=== PATIENT | male | born 1950 | race Caucasian/White ===

== ENCOUNTER 2024-08-05 12:42 | Inpatient (IN) | payer MEDICARE ==
--- NOTE | 2024-08-05 13:06 | ED ---
Male Urogenital HPI - General Chief complaint: Urogenital Stated complaint: Urogenital Time Seen by Provider: 08/05/24 12:53 Source: patient, RN notes reviewed, old records reviewed Mode of arrival: ambulatory Limitations: no limitations - History of Present Illness Initial comments: This is a 74-year-old male to the ER for evaluation of severe penile pain. Patient states he has type penis glans pain at his tip of his urethra, patient had a Garcia catheter indwelling placed for urinary retention which he switched requested switched to a suprapubic catheter because he could not deal with the pain and they thought it would alleviate his pain in his penis but his pain in his penis is significantly progressing if not worse. MD Complaint: testicle pain, penile discharge, dysuria -: month(s) Location: penis Severity scale (1-10): 10 Quality: sharp Consistency: constant Improves with: none Worsens with: none recent surgery Reports: denies other symptoms - Related Data Home Medications Medication Instructions Recorded Confirmed Acetaminophen-Codeine 300-30mg 1 tab PO Q4H PRN 08/05/24 08/05/24 [Tylenol w/codeine #3] FLUoxetine HCL [PROzac] 20 mg PO DAILY 08/05/24 08/05/24 FLUoxetine HCL [Prozac] 40 mg PO HS 08/05/24 08/05/24 L.acidoph,Paracasei, B.lactis 1 cap PO DAILY 08/05/24 08/05/24 [Probiotic] Levofloxacin [Levaquin] 750 mg PO DAILY 08/05/24 08/05/24 Lovastatin [Mevacor] 40 mg PO HS 08/05/24 08/05/24 Meloxicam [Mobic] 7.5 mg PO DAILY 08/05/24 08/05/24 Tamsulosin [Flomax] 0.4 mg PO BID 08/05/24 08/05/24 buPROPion [Wellbutrin] 75 mg PO BID 08/05/24 08/05/24 traZODone HCL [Desyrel] 100 mg PO HS 08/05/24 08/05/24 Allergies Allergy/AdvReac Type Severity Reaction Status Date / Time No Known Allergies Allergy Verified 08/05/24 14:34 Review of Systems ROS Statement: Those systems with pertinent positive or pertinent negative responses have been documented in the HPI. ROS Other: All systems not noted in ROS Statement are negative. Past Medical History Past Medical History: Prostate Disorder Additional Past Medical History / Comment(s): superpubic catheter History of Any Multi-Drug Resistant Organisms: None Reported Past Surgical History: Prostate Surgery Past Psychological History: Bipolar, Depression Smoking Status: Current every day smoker Past Alcohol Use History: Rare Past Drug Use History: None Reported General Exam Limitations: no limitations General appearance: alert, in no apparent distress Head exam: Present: atraumatic, normocephalic, normal inspection Eye exam: Present: normal appearance, PERRL, EOMI. Absent: scleral icterus, conjunctival injection, periorbital swelling ENT exam: Present: normal exam, mucous membranes moist Neck exam: Present: normal inspection. Absent: tenderness, meningismus, lymphadenopathy Respiratory exam: Present: normal lung sounds bilaterally. Absent: respiratory distress, wheezes, rales, rhonchi, stridor Cardiovascular Exam: Present: regular rate, normal rhythm, normal heart sounds. Absent: systolic murmur, diastolic murmur, rubs, gallop, clicks GI/Abdominal exam: Present: soft, normal bowel sounds. Absent: distended, tenderness, guarding, rebound, rigid Extremities exam: Present: normal inspection, full ROM, normal capillary refill. Absent: tenderness, pedal edema, joint swelling, calf tenderness Back exam: Present: normal inspection Neurological exam: Present: alert, oriented X3, CN II-XII intact Psychiatric exam: Present: normal affect, normal mood Skin exam: Present: warm, dry, intact, normal color. Absent: rash Course Vital Signs 08/05/24 08/05/24 12:46 13:43 Temperature 98.7 F Pulse Rate 77 67 Respiratory 16 18 Rate Blood Pressure 110/76 120/77 O2 Sat by Pulse 96 97 Oximetry - Reevaluation(s) Reevaluation #1: 08/05/24 13:26 Medical records reviewed Reevaluation #2: 08/05/24 13:26 Patient's pain is improved Reevaluation #3: 08/05/24 13:26 Patient informed of results questions answered Reevaluation #4: Was pt. sent in by a medical professional or institution (, PA, REMOVABLE PROSTHODONTIST, urgent care, hospital, or skilled nursing...) When possible be specific @ -no Did you speak to anyone other than the patient for history (EMS, parent, family, police, friend...)? What history was obtained from this source @ -no Did you review nursing and triage notes (agree or disagree)? Why? @ -agree Are old charts reviewed (outside hosp., previous admission, EMS record, old EKG, old radiological studies, urgent care reports/EKG's, skilled nursing records)? Report findings @ -yes Differential Diagnosis (chest pain, altered mental status, abdominal pain women, abdominal pain men, vaginal bleeding, weakness, fever, dyspnea, syncope, headache, dizziness, GI bleed, back pain, seizure, CVA, palpatations, mental health, musculoskeletal)? @ -prior EKG interpreted by me (3pts min.). @ -yes X-rays interpreted by me (1pt min.). @ -yes negative for acute disease CT interpreted by me (1pt min.). @ -no U/S interpreted by me (1pt. min.). @ -no What testing was considered but not performed or refused? (CT, X-rays, U/S, labs)? Why? @ -none What meds were considered but not given or refused? Why? @ -none Did you discuss the management of the patient with other professionals (professionals i.e. , PA, REMOVABLE PROSTHODONTIST, lab, RT, psych nurse, geriatric social worker, guest relations associate, teacher, chief green officer, supportive employment case manager)? Give summary @ -no Was smoking cessation discussed for >3mins.? @ -no Was critical care preformed (if so, how long)? @ -no Were there social determinants of health that impacted care today? How? (Homelessness, low income, unemployed, alcoholism, drug addiction, transportation, low edu. Level, literacy, decrease access to med. care, mcc, rehab)? @ -none Was there de-escalation of care discussed even if they declined (Discuss DNR or withdrawal of care, Hospice)? DNR status @ -no What co-morbidities impacted this encounter? (DM, HTN, Smoking, COPD, CAD, Cancer, CVA, ARF, Chemo, Hep., AIDS, mental health diagnosis, sleep apnea, morbid obesity)? @ -none Was patient admitted / discharged? Hospital course, mention meds given and route, prescriptions, significant lab abnormalities, going to OR and other pertinent info. @ - Undiagnosed new problem with uncertain prognosis? @ -no Drug Therapy requiring intensive monitoring for toxicity (Heparin, Nitro, Insulin, Cardizem)? @ -no Were any procedures done? @ -no Diagnosis/symptom? @ - Acute, or Chronic, or Acute on Chronic? @ -Acute Uncomplicated (without systemic symptoms) or Complicated (systemic symptoms)? @ -Complicated Side effects of treatment? @ -no Exacerbation, Progression, or Severe Exacerbation? @ -exacerbation Poses a threat to life or bodily function? How? (Chest pain, [place], [place], pneumonia, PE, COPD, DKA, ARF, appy, cholecystitis, CVA, Diverticulitis, Homicidal, Suicidal, threat to staff... and all critical care pts) @ -yes - Consultations Consultation #1: Spoke with [facility] who agrees to admit this patient Medical Decision Making - Medical Decision Making 74 male at this time will be admitted for urology evaluation and treatment in regards to need for catheter, suprapubic catheter and severe penis pain - Lab Data Result diagrams: 08/05/24 13:21 08/05/24 13:21 Lab Results 08/05/24 08/05/24 08/05/24 Range/Units 13:21 13:21 13:21 WBC 6.3 (3.8-10.6) k/uL RBC 5.11 (4.30-5.90) m/uL Hgb 15.6 (13.0-17.5) gm/dL Hct 48.3 (39.0-53.0) % MCV 94.4 (80.0-100.0) fL MCH 30.5 (25.0-35.0) pg MCHC 32.4 (31.0-37.0) g/dL RDW 13.6 (11.5-15.5) % Plt Count 294 (150-450) k/uL MPV 6.7 Neutrophils % 64 % Lymphocytes % 20 % Monocytes % 6 % Eosinophils % 7 % Basophils % 1 % Neutrophils # 4.1 (1.3-7.7) k/uL Lymphocytes # 1.3 (1.0-4.8) k/uL Monocytes # 0.4 (0-1.0) k/uL Eosinophils # 0.4 (0-0.7) k/uL Basophils # 0.1 (0-0.2) k/uL Sodium 136 L (137-145) mmol/L Potassium 4.5 (3.5-5.1) mmol/L Chloride 108 H (98-107) mmol/L Carbon Dioxide 24 (22-30) mmol/L Anion Gap 4 mmol/L BUN 30 H (9-20) mg/dL Creatinine 1.61 H (0.66-1.25) mg/dL Est GFR (CKD-EPI)AfAm 49 (>60 ml/min/1.73 sqM) Est GFR (CKD-EPI)NonAf 42 (>60 ml/min/1.73 sqM) Glucose 99 (74-99) mg/dL Calcium 9.3 (8.4-10.2) mg/dL Total Bilirubin 0.6 (0.2-1.3) mg/dL AST 21 (17-59) U/L ALT 21 (4-49) U/L Alkaline Phosphatase 86 (38-126) U/L Total Protein 6.7 (6.3-8.2) g/dL Albumin 4.2 (3.5-5.0) g/dL Amylase 48 (30-110) U/L Lipase 52 (23-300) U/L Urine Color Yellow Urine Appearance Cloudy (Clear) Urine pH 5.5 (5.0-8.0) Ur Specific [place] 1.026 (1.001-1.035) Urine Protein 1+ H (Negative) Urine Glucose (UA) Negative (Negative) Urine Ketones Negative (Negative) Urine Blood Large H (Negative) Urine Nitrite Negative (Negative) Urine Bilirubin Negative (Negative) Urine Urobilinogen <2.0 (<2.0) mg/dL Ur Leukocyte Esterase Moderate H (Negative) Urine RBC 149 H (0-5) /hpf Urine WBC 36 H (0-5) /hpf Ur Squamous Epith Cells <1 (0-4) /hpf Hyaline Casts 1 (0-2) /lpf Urine Mucus Rare H (None) /hpf Urine Yeast (Budding) Occasional H (None) /hpf - Radiology Data Radiology results: report reviewed (CT abdomen pelvis negative for acute disease), image reviewed Disposition Clinical Impression: Painful penis, Suprapubic catheter Disposition: ADMITTED IP TO THIS [facility] Condition: Good Is patient prescribed a controlled substance at d/c from ED?: No Time of Disposition: 13:30
[2024-08-05] MEDS ORDERED: NALOXONE 0.4 MG/ML 1 ML VIAL IV PRN (13:27)
[2024-08-05] MEDS: SODIUM CHLORIDE 0.9% 1,000 ML IV STA (13:30)
[2024-08-05 13:32] LABS: Basophils # (A) 0.1 k/uL (0-0.2); Basophils % (A) 1 %; Eosinophils # (A) 0.4 k/uL (0-0.7); Eosinophils % (A) 7 %; HCT 48.3 % (39.0-53.0); HGB 15.6 gm/dL (13.0-17.5); Lymphocytes # (A) 1.3 k/uL (1.0-4.8); Lymphocytes % (A) 20 %; MCH 30.5 pg (25.0-35.0); MCHC 32.4 g/dL (31.0-37.0); MCV 94.4 fL (80.0-100.0); Mean Platelet Volume 6.7; Monocytes # (A) 0.4 k/uL (0-1.0); Monocytes % (A) 6 %; Neutrophils # (A) 4.1 k/uL (1.3-7.7); Neutrophils % (A) 64 %; Platelet Count 294 k/uL (150-450); RBC 5.11 m/uL (4.30-5.90); RDW 13.6 % (11.5-15.5); WBC 6.3 k/uL (3.8-10.6)
[2024-08-05] MEDS: ACETAMINOPHEN TAB 500 MG TAB PO STA (13:32)
[2024-08-05] MEDS: KETOROLAC 15 MG/ML 1 ML VIAL IVP STA (13:42)
[2024-08-05] MEDS: HYDROmorphone 1 MG/ML 1 ML SYRINGE IVP STA (13:42)
[2024-08-05] MEDS: PHENAZOPYRIDINE 200 MG TAB PO STA (13:45)
[2024-08-05 13:50] LABS: ALT 21 U/L (4-49); AST 21 U/L (17-59); African American GFR (CKD) 49 (>60 ml/min/1.73 sqM); Albumin 4.2 g/dL (3.5-5.0); Alkaline Phosphatase 86 U/L (38-126); Amylase 48 U/L (30-110); Anion Gap 4 mmol/L; Blood Urea Nitrogen 30 mg/dL (9-20); Calcium 9.3 mg/dL (8.4-10.2); Carbon Dioxide 24 mmol/L (22-30); Chloride 108 mmol/L (98-107); Glucose 99 mg/dL (74-99); Lipase 52 U/L (23-300); Non-African American GFR(CKD) 42 (>60 ml/min/1.73 sqM); Potassium 4.5 mmol/L (3.5-5.1); Sodium 136 mmol/L (137-145); Total Bilirubin 0.6 mg/dL (0.2-1.3); Total Protein 6.7 g/dL (6.3-8.2)
[2024-08-05] MEDS: SODIUM CHLORIDE 0.9% 1,000 ML IV SCH (13:56)
[2024-08-05 14:00] LABS: Appearance,Urine Cloudy (Clear); Bilirubin,Urine Negative (Negative); Blood,Urine Large (Negative); Budding Yeast,Urine Occasional /hpf; Color,Urine Yellow; Glucose,Urine (UA) Negative (Negative); Hyaline Casts,Urine 1 /lpf (0-2); Ketones,Urine Negative (Negative); Leukocyte Esterase,Urine Moderate (Negative); Mucus,Urine Rare /hpf; Nitrite,Urine Negative (Negative); PH, Urine 5.5 (5.0-8.0); Protein,Urine 1+ (Negative); RBC,Urine 149 /hpf (0-5); Specific Gravity,Urine 1.026 (1.001-1.035); Squamous Epithelial Cell,Urine <1 /hpf (0-4); Urobilinogen,Urine <2.0 mg/dL (<2.0); WBC,Urine 36 /hpf (0-5)
--- NOTE | 2024-08-05 14:50 | CT ---
EXAMINATION TYPE: CT abdomen pelvis w con CT DLP: 1185.5 mGycm, Automated exposure control for dose reduction was used. DATE OF EXAM: 08/05/2024 2:34 PM COMPARISON: None CLINICAL INDICATION:Male, 74 years old with history of abdominal pain; penis pain TECHNIQUE: Standard CT of the abdomen and pelvis following the administration of 100 cc of Isovue 3 00 IV contrast material. Coronal and sagittal reformats were performed. FINDINGS: LOWER CHEST: Unremarkable ABDOMEN LIVER: Few scattered cysts measuring up to 2.5 cm. GALLBLADDER AND BILE DUCTS: Unremarkable. PANCREAS: Unremarkable. SPLEEN: Unremarkable. ADRENAL GLANDS: Unremarkable. KIDNEYS AND URETERS: No evidence of hydronephrosis or renal calculus. The kidneys enhance symmetrical ly. Left renal 1.5 cm cyst with additional carpal subcentimeter cysts. PELVIS BLADDER: Decompressed with suprapubic catheter in place. Heterogenous appearance of the urinary bladd er with wall thickening. REPRODUCTIVE: Prostate gland appears small in size. Unremarkable CT appearance of the visualized peni s. ABDOMEN & PELVIS STOMACH AND BOWEL: Small hiatal hernia, duodenum is unremarkable. No focal bowel wall thickening or s urrounding inflammatory changes. No evidence of bowel obstruction. PERITONEUM: No evidence of pneumoperitoneum or free fluid. VASCULATURE: Mild atherosclerotic calcifications are present throughout the abdominal aorta and its b ranches. No evidence of aortic aneurysm. MUSCULOSKELETAL: No acute osseous abnormalities. Mild dextrocurvature of the lumbar spine. Moderate m ultilevel degenerative disc disease of the lumbar spine. LYMPH NODES: No evidence for lymphadenopathy. SOFT TISSUE/ABDOMINAL WALL: Postsurgical scar in the midline anterior abdominal wall. IMPRESSION: Heterogenous appearance of the urinary bladder with suprapubic catheter in place. There are regions o f wall thickening demonstrated. Evaluation is limited due to lack of urinary bladder contrast and dec ompression. Etiologies included cystitis with underlying neoplasm cannot entirely excluded. Correlate with urinalysis. The CT appearance of the penis appears unremarkable. [facility], , 08/05/2024 2:47 PM
[2024-08-05] MEDS: HYDROmorphone 1 MG/ML 1 ML SYRINGE IVP PRN (17:08)
[2024-08-05] MEDS: ONDANSETRON 4 MG/2 ML VIAL IVP PRN (20:38)
[2024-08-05] MEDS ORDERED: Acetaminophen-Codeine 300-30mg TAB PO PRN (21:12)
[2024-08-05] MEDS ORDERED: FLUoxetine HCL 20 MG CAP PO SCH (21:30)
[2024-08-05] MEDS: MELOXICAM 7.5 MG TAB PO SCH (21:47)
[2024-08-05] MEDS: TAMSULOSIN 0.4 MG CAP.ER.24H PO SCH (21:47)
[2024-08-05] MEDS: traZODone HCL 100 MG TAB PO SCH (21:47)
[2024-08-05] MEDS: buPROPion 75 MG TAB PO SCH (21:48)
[2024-08-05] MEDS: ATORVASTATIN 10 MG TAB PO SCH (21:48)
[2024-08-05] MEDS: FLUoxetine HCL 20 MG CAP PO SCH (21:53)
[2024-08-06] MEDS: FLUoxetine HCL 20 MG CAP PO SCH (07:57)
--- NOTE | 2024-08-06 11:21 | P.HPIM ---
History of Present Illness H&P Date: 08/06/24 History of present illness; patient is a 74-year-old gentleman with past medical history significant for urine retention who presented to the ER for penile pain. Patient has history of urine retention and had a Garcia catheter placed for retention, recently it was switched to a suprapubic catheter. Patient stated that he continues to have penile pain. There is no complaint of any fever or chills. There is no complaint of loss of appetite or weight loss. There is no complaint of nausea vomiting or abdominal pain. Because of his penile pain, patient came to the ER Initial lab work done in the ER showed WBC 6.3, hemoglobin 15.6, platelet count 294, sodium 130s, potassium 4.5, BUN 30, creatinine 1.61, glucose 99, calcium 9.3, AST 21, ALT 21, UA done showed moderate amount of leukocyte Estrace, urine nitrite negative CT abdomen pelvis done showed heterogenous appearance of the bladder with suprapubic catheter in place. There are regions of bladder wall thickening. Questionable cystitis Patient admitted to internal medicine service REVIEW OF SYSTEMS: CONSTITUTIONAL: No fever, no malaise, no fatigue. HEENT: No recent visual problems or hearing problems. Denied any sore throat. CARDIOVASCULAR: No chest pain, orthopnea, PND, no palpitations, no syncope. PULMONARY: No shortness of breath, no cough, no hemoptysis. GASTROINTESTINAL: No diarrhea, no nausea, no vomiting, no abdominal pain. NEUROLOGICAL: No headaches, no weakness, no numbness. HEMATOLOGICAL: Denies any bleeding or petechiae. GENITOURINARY: As mentioned above MUSCULOSKELETAL/RHEUMATOLOGICAL: Denies any joint pain, swelling, or any muscle pain. ENDOCRINE: Denies any polyuria or polydipsia. The rest of the 14-point review of systems is negative. PHYSICAL EXAMINATION: GENERAL: The patient is alert and oriented x3, not in any acute distress. Well developed, well nourished. HEENT: Pupils are round and equally reacting to light. EOMI. No scleral icterus. No conjunctival pallor. Normocephalic, atraumatic. No pharyngeal erythema. No thyromegaly. CARDIOVASCULAR: S1 and S2 present. No murmurs, rubs, or gallops. PULMONARY: Chest is clear to auscultation, no wheezing or crackles. ABDOMEN: Soft, nontender, nondistended, normoactive bowel sounds. No palpable organomegaly. Suprapubic catheter in place MUSCULOSKELETAL: No joint swelling or deformity. EXTREMITIES: No cyanosis, clubbing, or pedal edema. NEUROLOGICAL: Gross neurological examination did not reveal any focal deficits. SKIN: No rashes. Assessment and plan Penile pain Acute cystitis History of urine retention, currently has a suprapubic catheter in place Monitor vital signs Monitor CBC Monitor CMP Results of UA noted Urine culture ordered Start Rocephin Start IV fluids Start Flomax Ordered home meds Consult urology Consult ID Labs and medication were reviewed.. Continue same treatment. Continue with symptomatic treatment. Resume home medication. Monitor labs and vitals. DVT and GI prophylaxis. Further recommendations as per clinical course of the patient Dictation was produced using [employer] dictation software. please excuse any grammatical, word or spelling errors. Past Medical History Past Medical History: Prostate Disorder Additional Past Medical History / Comment(s): superpubic catheter History of Any Multi-Drug Resistant Organisms: None Reported Past Surgical History: Prostate Surgery Past Psychological History: Bipolar, Depression Smoking Status: Current every day smoker Past Alcohol Use History: Rare Past Drug Use History: None Reported Medications and Allergies Home Medications Medication Instructions Recorded Confirmed Type Acetaminophen-Codeine 300-30mg 1 tab PO Q4H PRN 08/05/24 08/05/24 History [Tylenol w/codeine #3] FLUoxetine HCL [PROzac] 20 mg PO HS 08/05/24 08/05/24 History FLUoxetine HCL [Prozac] 40 mg PO DAILY 08/05/24 08/05/24 History L.acidoph,Paracasei, B.lactis 1 cap PO DAILY 08/05/24 08/05/24 History [Probiotic] Levofloxacin [Levaquin] 750 mg PO DAILY 08/05/24 08/05/24 History Lovastatin [Mevacor] 40 mg PO HS 08/05/24 08/05/24 History Meloxicam [Mobic] 7.5 mg PO DAILY 08/05/24 08/05/24 History Tamsulosin [Flomax] 0.4 mg PO BID 08/05/24 08/05/24 History buPROPion [Wellbutrin] 75 mg PO BID 08/05/24 08/05/24 History traZODone HCL [Desyrel] 100 mg PO HS 08/05/24 08/05/24 History Allergies Allergy/AdvReac Type Severity Reaction Status Date / Time No Known Allergies Allergy Verified 08/05/24 14:34 Physical Exam Vitals: Vital Signs Temp Pulse Pulse Resp BP BP Pulse Ox 08/06/24 07:45 97.1 F L 60 18 118/87 98 08/06/24 04:57 65 16 112/75 90 L 08/06/24 01:45 59 L 16 93/58 92 L 08/05/24 20:43 58 L 16 104/67 92 L 08/05/24 16:31 98.0 F 60 18 110/72 97 08/05/24 13:43 67 18 120/77 97 08/05/24 12:46 98.7 F 77 16 110/76 96 Intake and Output 08/05/24 08/06/24 08/06/24 22:59 06:59 14:59 Output Total 625 Balance -625 Output: Urine 625 Results CBC & Chem 7: 08/05/24 13:21 08/05/24 13:21 Labs: Abnormal Lab Results - Last 24 Hours (Table) 08/05/24 08/05/24 Range/Units 13:21 13:21 Sodium 136 L (137-145) mmol/L Chloride 108 H (98-107) mmol/L BUN 30 H (9-20) mg/dL Creatinine 1.61 H (0.66-1.25) mg/dL Urine Protein 1+ H (Negative) Urine Blood Large H (Negative) Ur Leukocyte Esterase Moderate H (Negative) Urine RBC 149 H (0-5) /hpf Urine WBC 36 H (0-5) /hpf Urine Mucus Rare H (None) /hpf Urine Yeast (Budding) Occasional H (None) /hpf
--- NOTE | 2024-08-06 17:53 | P.GSCN ---
History of Present Illness Consult date: 08/06/24 Reason for Consult: Dysuria, penile pain History of present illness: This is a 74-year-old male admitted to the hospital with penile pain and d ysuria. 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 He was recently seen at [facility] and underwent a cystoscopy over there which showed no abnormality along the penile urethra, but there was evidence of a bulbar stricture. He makes very little urine on his own majority of the urine is being drained via the suprapubic catheter. He has now undergone 2 cystoscopy 1 at [place] and additional 1 by his urologist which showed no abnormality. Urinalysis is positive for leukocyte Estrace, which is consistent given his suprapubic tube. Denies any fevers or chills. He indicated the pain is only at the tip of the penis and is present all the times, no radiation anywhere. Underwent a CT abdomen pelvis that showed no acute process within the bladder, he does have a previous history of a TURP and a bladder diverticulum excision Review of Systems - Constitutional Denies fever, Denies weight loss - EENT Ears, nose, mouth and throat: Denies dysphagia - Cardiovascular Denies chest pain, Denies shortness of breath - Gastrointestinal Reports as per HPI - Genitourinary Reports dysuria, Denies hematuria - Integumentary Denies rash, Denies unusual bruising - Neurological Denies headaches, Denies syncope Past Medical History Past Medical History: Prostate Disorder Additional Past Medical History / Comment(s): superpubic catheter History of Any Multi-Drug Resistant Organisms: None Reported Past Surgical History: Prostate Surgery Past Anesthesia/Blood Transfusion Reactions: No Reported Reaction Past Psychological History: Bipolar, Depression Smoking Status: Current every day smoker Past Alcohol Use History: Occasional Past Drug Use History: None Reported Medications and Allergies Home Medications Medication Instructions Recorded Confirmed Type Acetaminophen-Codeine 300-30mg 1 tab PO Q4H PRN 08/05/24 08/05/24 History [Tylenol w/codeine #3] FLUoxetine HCL [PROzac] 20 mg PO HS 08/05/24 08/05/24 History FLUoxetine HCL [Prozac] 40 mg PO DAILY 08/05/24 08/05/24 History L.acidoph,Paracasei, B.lactis 1 cap PO DAILY 08/05/24 08/05/24 History [Probiotic] Levofloxacin [Levaquin] 750 mg PO DAILY 08/05/24 08/05/24 History Lovastatin [Mevacor] 40 mg PO HS 08/05/24 08/05/24 History Meloxicam [Mobic] 7.5 mg PO DAILY 08/05/24 08/05/24 History Tamsulosin [Flomax] 0.4 mg PO BID 08/05/24 08/05/24 History buPROPion [Wellbutrin] 75 mg PO BID 08/05/24 08/05/24 History traZODone HCL [Desyrel] 100 mg PO HS 08/05/24 08/05/24 History Allergies Allergy/AdvReac Type Severity Reaction Status Date / Time No Known Allergies Allergy Verified 08/05/24 14:34 Surgical - Exam Vital Signs Temp Pulse Resp BP Pulse Ox 98.7 F 77 16 110/76 96 08/05/24 12:46 08/05/24 12:46 08/05/24 12:46 08/05/24 12:46 08/05/24 12:46 - General no distress, moderate pain - Eyes normal ocular movement, no pale - ENT normal nares, normal mucosa - Respiratory normal expansion, normal respiratory effort - Abdomen Abdomen: soft, non tender, no distended - Genitourinary normal penis with no external lesions, testicles present - Psychiatric oriented to time, oriented to person, oriented to place Results - Labs 08/05/24 13:21 08/05/24 13:21 Assessment and Plan Assessment: 74-year-old male with penile pain of unknown etiology, on exam no abnormality appreciated, CT showed no abnormality, has had 2 cysts cystoscopies that showed no abnormality along the course of the penile urethra. He does have a history of chronic retention being managed with a Garcia. I cannot explain why he is having pain along the penile glans. Can consider a 2-week course of Cipro for a possible prostatitis, can also consider short course of Neurontin as this may be neuropathic pain. Urology standpoint no further intervention is needed, he should follow-up with his urologist in [facility]
[2024-08-06] MEDS: PHENAZOPYRIDINE 200 MG TAB PO SCH (17:54)
[2024-08-06] MEDS: DOCUSATE 100 MG CAP PO SCH (20:59)
--- NOTE | 2024-08-07 09:15 | P.CONS ---
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 that apparently is changed once every 6 months and has been recently changed patient presenting to the hospital concerning of pain to the tip of his urethra patient did mention he did have a recent problem with obstruction of his Garcia catheter and he was able to urinate through his penis patient denies having any swelling or redness to the penile tip or any purulent drainage patient denies high-grade fever did have some chills denies any headache or URI symptoms no chest pain shortness of breath cough no nausea vomiting and no diarrhea on presentation to hospital the patient was afebrile no fever have been ordered subsequently patient was not tachycardic hypotensive or hypoxic patient did have white count of 6.3 BUN and creatinine has been mildly elevated did have a positive UA with concern for a catheter assisted UTI patient was started on ceftriaxone infectious disease was consulted for further management of antibiotic therapy Review of Systems Positive point and negatives has been mentioned in the HPI, complete review of systems was performed and all other systems are negative Past Medical History Past Medical History: Prostate Disorder Additional Past Medical History / Comment(s): superpubic catheter History of Any Multi-Drug Resistant Organisms: None Reported Past Surgical History: Prostate Surgery Past Psychological History: Bipolar, Depression Smoking Status: Current every day smoker Past Alcohol Use History: Rare Past Drug Use History: None Reported Medications and Allergies Home Medications Medication Instructions Recorded Confirmed Type Acetaminophen-Codeine 300-30mg 1 tab PO Q4H PRN 08/05/24 08/05/24 History [Tylenol w/codeine #3] FLUoxetine HCL [PROzac] 20 mg PO HS 08/05/24 08/05/24 History FLUoxetine HCL [Prozac] 40 mg PO DAILY 08/05/24 08/05/24 History L.acidoph,Paracasei, B.lactis 1 cap PO DAILY 08/05/24 08/05/24 History [Probiotic] Levofloxacin [Levaquin] 750 mg PO DAILY 08/05/24 08/05/24 History Lovastatin [Mevacor] 40 mg PO HS 08/05/24 08/05/24 History Meloxicam [Mobic] 7.5 mg PO DAILY 08/05/24 08/05/24 History Tamsulosin [Flomax] 0.4 mg PO BID 08/05/24 08/05/24 History buPROPion [Wellbutrin] 75 mg PO BID 08/05/24 08/05/24 History traZODone HCL [Desyrel] 100 mg PO HS 08/05/24 08/05/24 History Allergies Allergy/AdvReac Type Severity Reaction Status Date / Time No Known Allergies Allergy Verified 08/05/24 14:34 Physical Exam Vitals: Vital Signs Temp Pulse Pulse Resp BP BP Pulse Ox 08/06/24 07:45 97.1 F L 60 18 118/87 98 08/06/24 04:57 65 16 112/75 90 L 08/06/24 01:45 59 L 16 93/58 92 L 08/05/24 20:43 58 L 16 104/67 92 L 08/05/24 16:31 98.0 F 60 18 110/72 97 08/05/24 13:43 67 18 120/77 97 08/05/24 12:46 98.7 F 77 16 110/76 96 Intake and Output 08/05/24 08/06/24 08/06/24 22:59 06:59 14:59 Output Total 625 Balance -625 Output: Urine 625 GENERAL DESCRIPTION: Elderly male lying in bed, no distress. No tachypnea or accessory muscle of respiration use. HEENT: Shows Pallor , no scleral icterus. Oral mucous membrane is dry. No pharyngeal erythema or thrush NECK: Trachea central, no thyromegaly. LUNGS: Unlabored breathing. Clear to auscultation anteriorly. No wheeze or crackle. HEART: S1, S2, regular rate and rhythm. No loud murmur ABDOMEN: Soft, no tenderness , guarding or rigidity, no organomegaly : No swelling redness or any drainage to the penile tip EXTREMITIES: No edema of feet. SKIN: No rash, no masses palpable. NEUROLOGICAL: The patient is awake, alert, oriented x3, mood and affect normal. Results CBC & Chem 7: 08/05/24 13:21 08/05/24 13:21 Labs: Abnormal Lab Results - Last 24 Hours (Table) 08/05/24 08/05/24 Range/Units 13:21 13:21 Sodium 136 L (137-145) mmol/L Chloride 108 H (98-107) mmol/L BUN 30 H (9-20) mg/dL Creatinine 1.61 H (0.66-1.25) mg/dL Urine Protein 1+ H (Negative) Urine Blood Large H (Negative) Ur Leukocyte Esterase Moderate H (Negative) Urine RBC 149 H (0-5) /hpf Urine WBC 36 H (0-5) /hpf Urine Mucus Rare H (None) /hpf Urine Yeast (Budding) Occasional H (None) /hpf Assessment and Plan (1) UTI (urinary tract infection) Current Visit: Yes Status: Acute Code(s): N39.0 - URINARY TRACT INFECTION, SITE NOT SPECIFIED SNOMED Code(s): 81021040 Plan: 1patient presented to hospital with pain to the penile tip with no abnormality on the clinical examination did have some dysuria concerning for possible UTI as the patient did have a positive UA and likely from enteric gram-negative pathogen. 2Rocephin 2 g daily while waiting for the culture to finalize. We will follow on clinical condition and cultures to further adjust medication if needed Thank you for this consultation we will follow the patient along with you Dictation was produced using [employer] dictation software. please excuse any grammatical, word or spelling errors. Time with Patient: Greater than 30
[2024-08-07] MEDS: LACTOBACILLUS ACIDOPHILUS/PECT 1 EACH CAPSULE PO SCH (09:23)
[2024-08-07 11:12] LABS: Basophils % (A) 1 %; Eosinophils # (A) 0.4 k/uL (0-0.7); Eosinophils % (A) 8 %; HCT 42.2 % (39.0-53.0); HGB 13.6 gm/dL (13.0-17.5); Lymphocytes # (A) 0.9 k/uL (1.0-4.8); Lymphocytes % (A) 16 %; MCH 30.8 pg (25.0-35.0); MCHC 32.3 g/dL (31.0-37.0); MCV 95.4 fL (80.0-100.0); Mean Platelet Volume 6.4; Monocytes # (A) 0.4 k/uL (0-1.0); Monocytes % (A) 7 %; Neutrophils # (A) 3.8 k/uL (1.3-7.7); Neutrophils % (A) 67 %; Platelet Count 232 k/uL (150-450); RBC 4.43 m/uL (4.30-5.90); RDW 13.5 % (11.5-15.5); WBC 5.7 k/uL (3.8-10.6)
[2024-08-07 11:35] LABS: ALT 15 U/L (4-49); AST 18 U/L (17-59); African American GFR (CKD) 63 (>60 ml/min/1.73 sqM); Albumin 3.3 g/dL (3.5-5.0); Albumin/Globulin Ratio 1.6; Alkaline Phosphatase 67 U/L (38-126); Anion Gap 3 mmol/L; Blood Urea Nitrogen 23 mg/dL (9-20); Calcium 8.6 mg/dL (8.4-10.2); Carbon Dioxide 28 mmol/L (22-30); Chloride 106 mmol/L (98-107); Globulin 2.1 g/dL; Glucose 98 mg/dL (74-99); Non-African American GFR(CKD) 55 (>60 ml/min/1.73 sqM); Potassium 4.4 mmol/L (3.5-5.1); Sodium 137 mmol/L (137-145); Total Bilirubin 0.4 mg/dL (0.2-1.3); Total Protein 5.4 g/dL (6.3-8.2)
--- NOTE | 2024-08-07 13:28 | P.PN ---
Subjective Progress Note Date: 08/07/24 patient is a 74-year-old gentleman with past medical history significant for urine retention who presented to the ER for penile pain. Patient has history of urine retention and had a Garcia catheter placed for retention, recently it was switched to a suprapubic catheter. Patient stated that he continues to have penile pain. There is no complaint of any fever or chills. There is no complaint of loss of appetite or weight loss. There is no complaint of nausea vomiting or abdominal pain. Because of his penile pain, patient came to the ER Initial lab work done in the ER showed WBC 6.3, hemoglobin 15.6, platelet count 294, sodium 130s, potassium 4.5, BUN 30, creatinine 1.61, glucose 99, calcium 9. 3, AST 21, ALT 21, UA done showed moderate amount of leukocyte Estrace, urine nitrite negative CT abdomen pelvis done showed heterogenous appearance of the bladder with suprapubic catheter in place. There are regions of bladder wall thickening. Questionable cystitis Patient admitted to internal medicine service 08/07. Patient seen and examined. States penile pain has improved. Waiting on urine cultures REVIEW OF SYSTEMS: CONSTITUTIONAL: No fever, no malaise,. CARDIOVASCULAR: No chest pain, no palpitations, no syncope. PULMONARY: No shortness of breath, no cough, GASTROINTESTINAL: No diarrhea, no nausea, no vomiting, no abdominal pain. NEUROLOGICAL: No headaches, no weakness, PHYSICAL EXAMINATION: GENERAL: The patient is alert and oriented x3, not in any acute distress. Well developed, well nourished. HEENT: Pupils are round and equally reacting to light. EOMI. No scleral icterus. No conjunctival pallor. Normocephalic, atraumatic. No pharyngeal erythema. No thyromegaly. CARDIOVASCULAR: S1 and S2 present. No murmurs, rubs, or gallops. PULMONARY: Chest is clear to auscultation, no wheezing or crackles. ABDOMEN: Soft, nontender, nondistended, normoactive bowel sounds. No palpable organomegaly. Suprapubic catheter seen MUSCULOSKELETAL: No joint swelling or deformity. EXTREMITIES: No cyanosis, clubbing, or pedal edema. NEUROLOGICAL: Gross neurological examination did not reveal any focal deficits. SKIN: No rashes. Assessment and plan Penile pain Acute cystitis History of urine retention, currently has a suprapubic catheter in place Monitor vital signs Monitor CBC Monitor CMP Results of UA noted Urine culture ordered Continue Rocephin Continue IV fluids Continue Flomax Urology following ID following Labs and medication were reviewed.. Continue same treatment. Continue with symptomatic treatment. Resume home medication. Monitor labs and vitals. DVT and GI prophylaxis. Further recommendations as per clinical course of the patient Dictation was produced using [employer] dictation software. please excuse any grammatical, word or spelling errors. Objective - Vital Signs Vital signs: Vital Signs Temp 97.9 F 08/07/24 07:15 Pulse 63 08/07/24 07:15 Resp 16 08/07/24 07:15 BP 114/74 08/07/24 07:15 Pulse Ox 91 L 08/07/24 07:15 FiO2 Intake & Output 08/06/24 08/07/24 08/07/24 18:59 06:59 18:59 Intake Total 118 118 Output Total 1400 Balance 118 -1400 118 Weight 102.058 kg Intake: Oral 118 118 Output: Urine 1400 - Labs CBC & Chem 7: 08/07/24 10:56 08/07/24 10:56
--- NOTE | 2024-08-07 14:21 | P.PN ---
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 On today's evaluation that is 08/07/2024, patient did not have any fever and denies any chills, patient is breathing comfortably on room air, patient with no chest pain or cough patient did not have any abdominal pain nausea vomiting or any loose stools still complaining of discomfort to the penile tip Patient white count is 5.7, creat is 1.30 cultures currently pending Objective - Vital Signs Vital signs: Vital Signs Temp 97.9 F 08/07/24 07:15 Pulse 63 08/07/24 07:15 Resp 16 08/07/24 07:15 BP 114/74 08/07/24 07:15 Pulse Ox 91 L 08/07/24 07:15 FiO2 Intake & Output 08/06/24 08/07/24 08/07/24 18:59 06:59 18:59 Intake Total 118 118 Output Total 1400 Balance 118 -1400 118 Weight 102.058 kg Intake: Oral 118 118 Output: Urine 1400 Other: Voiding Method Indwelling Catheter - Exam GENERAL DESCRIPTION: An elderly male lying in bed in no distress RESPIRATORY SYSTEM: Unlabored breathing , decreased breath sounds at bases HEART: S1 S2 regular rate and rhythm , ABDOMEN: Soft , no tenderness EXTREMITIES: No edema feet - Labs CBC & Chem 7: 08/07/24 10:56 08/07/24 10:56 Labs: Abnormal Lab Results - Last 24 Hours (Table) 08/07/24 08/07/24 Range/Units 10:56 10:56 Lymphocytes # 0.9 L (1.0-4.8) k/uL BUN 23 H (9-20) mg/dL Creatinine 1.30 H (0.66-1.25) mg/dL Total Protein 5.4 L (6.3-8.2) g/dL Albumin 3.3 L (3.5-5.0) g/dL Microbiology - Last 24 Hours (Table) 08/06/24 11:26 Urine Culture - Final Urine,Suprapubic Assessment and Plan (1) UTI (urinary tract infection) Current Visit: Yes Status: Acute Code(s): N39.0 - URINARY TRACT INFECTION, SITE NOT SPECIFIED SNOMED Code(s): 81538813 Plan: 1patient presented to hospital with pain to the penile tip with no abnormality on the clinical examination did have some dysuria concerning for possible UTI as the patient did have a positive UA and likely from enteric gram-negative pathogen. 2nursing staff to clamp the suprapubic and get a urine culture through the urethra 3-Rocephin 2 g daily while waiting for the culture to finalize. at the bedside question answered Dictation was produced using [employer] dictation software. please excuse any grammatical, word or spelling errors. Time with Patient: Less than 30
[2024-08-07 14:42] LABS: Appearance,Urine Cloudy (Clear); Bacteria,Urine Rare /hpf; Bilirubin,Urine Negative (Negative); Blood,Urine Large (Negative); Color,Urine Dark Brown; Glucose,Urine (UA) Negative (Negative); Ketones,Urine Negative (Negative); Leukocyte Esterase,Urine Moderate (Negative); Mucus,Urine Rare /hpf; Nitrite,Urine Positive (Negative); Protein,Urine Trace (Negative); RBC,Urine >182 /hpf (0-5); Specific Gravity,Urine 1.015 (1.001-1.035); Squamous Epithelial Cell,Urine <1 /hpf (0-4); WBC,Urine 56 /hpf (0-5)
[2024-08-08 09:52] LABS: Basophils # (A) 0.04 X 10*3/uL (0.00-0.10); Basophils % (A) 0.7 %; Eosinophils # (A) 0.34 X 10*3/uL (0.04-0.35); Eosinophils % (A) 6.3 %; HCT 41.3 % (39.6-50.0); HGB 12.9 g/dL (13.0-17.0); Lymphocytes # (A) 0.93 X 10*3/uL (0.90-5.00); Lymphocytes % (A) 17.2 %; MCH 29.6 pg (27.0-32.0); MCHC 31.2 g/dL (32.0-37.0); MCV 94.7 FL (80.0-97.0); Mean Platelet Volume 9.4 FL (9.5-12.2); Monocytes % (A) 7.4 %; NRBC Per 100 WBC 0 X 10*3/uL (0.00-0.01); Neutrophils % (A) 68.2 %; Platelet Count 253 X 10*3/uL (140-440); RBC 4.36 X 10*6/uL (4.40-5.60); RDW 13.8 % (11.5-14.5); WBC 5.42 X 10*3/uL (4.50-10.00)
[2024-08-08 10:30] LABS: ALT 14 U/L (10-49); AST 16 U/L (14-35); Albumin 3.4 g/dL (3.8-4.9); Albumin/Globulin Ratio 1.89 Ratio (1.60-3.17); Alkaline Phosphatase 75 U/L (41-126); BUN/Creat Ratio 17.29 Ratio (12.00-20.00); Blood Urea Nitrogen 24.2 mg/dL (9.0-27.0); Calcium 8.3 mg/dL (8.7-10.3); Carbon Dioxide 24.7 mmol/L (21.6-31.8); Chloride 107 mmol/L (96-109); Globulin 1.8 g/dL (1.6-3.3); Glucose 93 mg/dL (70-110); Potassium 4.7 mmol/L (3.5-5.5); Sodium 140 mmol/L (135-145); Total Bilirubin <0.2 mg/dL (0.3-1.2); Total Protein 5.2 g/dL (6.2-8.2)
[2024-08-08] MEDS: HYDROcodone/APAP 10-325MG 1 EACH TAB PO PRN (11:32)
--- NOTE | 2024-08-08 12:59 | P.PN ---
Subjective Progress Note Date: 08/08/24 patient is a 74-year-old gentleman with past medical history significant for urine retention who presented to the ER for penile pain. Patient has history of urine retention and had a Garcia catheter placed for retention, recently it was switched to a suprapubic catheter. Patient stated that he continues to have penile pain. There is no complaint of any fever or chills. There is no complaint of loss of appetite or weight loss. There is no complaint of nausea vomiting or abdominal pain. Because of his penile pain, patient came to the ER Initial lab work done in the ER showed WBC 6.3, hemoglobin 15.6, platelet count 294, sodium 130s, potassium 4.5, BUN 30, creatinine 1.61, glucose 99, calcium 9. 3, AST 21, ALT 21, UA done showed moderate amount of leukocyte Estrace, urine nitrite negative CT abdomen pelvis done showed heterogenous appearance of the bladder with suprapubic catheter in place. There are regions of bladder wall thickening. Questionable cystitis Patient admitted to internal medicine service 08/07. Patient seen and examined. States penile pain has improved. Waiting on urine cultures 08/08. Patient seen and examined. States he feels slightly better. Still complaining of penile pain. Urology recommend prolonged course of antibiotics for possible prostatitis REVIEW OF SYSTEMS: CONSTITUTIONAL: No fever, no malaise,. CARDIOVASCULAR: No chest pain, no palpitations, no syncope. PULMONARY: No shortness of breath, no cough, GASTROINTESTINAL: No diarrhea, no nausea, no vomiting, no abdominal pain. NEUROLOGICAL: No headaches, no weakness, PHYSICAL EXAMINATION: GENERAL: The patient is alert and oriented x3, not in any acute distress. Well developed, well nourished. HEENT: Pupils are round and equally reacting to light. EOMI. No scleral icterus. No conjunctival pallor. Normocephalic, atraumatic. No pharyngeal erythema. No thyromegaly. CARDIOVASCULAR: S1 and S2 present. No murmurs, rubs, or gallops. PULMONARY: Chest is clear to auscultation, no wheezing or crackles. ABDOMEN: Soft, nontender, nondistended, normoactive bowel sounds. No palpable organomegaly. Suprapubic catheter seen MUSCULOSKELETAL: No joint swelling or deformity. EXTREMITIES: No cyanosis, clubbing, or pedal edema. NEUROLOGICAL: Gross neurological examination did not reveal any focal deficits. SKIN: No rashes. Assessment and plan Penile pain Acute cystitis History of urine retention, currently has a suprapubic catheter in place Monitor vital signs Monitor CBC Monitor CMP Results of UA noted Urine culture ordered Continue Rocephin Continue pain management Continue Flomax Urology following, recommend prolonged course of antibiotics at discharge for prostatitis ID following Labs and medication were reviewed.. Continue same treatment. Continue with symptomatic treatment. Resume home medication. Monitor labs and vitals. DVT and GI prophylaxis. Further recommendations as per clinical course of the patient Dictation was produced using [employer] dictation software. please excuse any grammatical, word or spelling errors. Objective - Vital Signs Vital signs: Vital Signs Temp 97.6 F 08/08/24 07:45 Pulse 49 L 08/08/24 07:45 Resp 16 08/08/24 07:45 BP 132/78 08/08/24 07:45 Pulse Ox 93 L 08/08/24 07:45 FiO2 Intake & Output 08/07/24 08/08/24 08/08/24 18:59 06:59 18:59 Intake Total 1184 360 Output Total 1900 Balance 1184 -1900 360 Intake: Oral 1184 360 Output: Urine 1900 Other: Voiding Method Indwelling Catheter Indwelling Catheter # Voids 1 - Labs CBC & Chem 7: 08/08/24 06:33 08/08/24 06:33 Labs: Abnormal Lab Results - Last 24 Hours (Table) 08/07/24 08/08/24 08/08/24 Range/Units 14:12 06:33 06:33 RBC 4.36 L (4.40-5.60) X 10*6/uL Hgb 12.9 L (13.0-17.0) g/dL MCHC 31.2 L (32.0-37.0) g/dL MPV 9.4 L (9.5-12.2) FL Est GFR (CKD-EPI) 53 L (>=60) Calcium 8.3 L (8.7-10.3) mg/dL Total Bilirubin <0.2 L (0.3-1.2) mg/dL Total Protein 5.2 L (6.2-8.2) g/dL Albumin 3.4 L (3.8-4.9) g/dL Urine Protein Trace H (Negative) Urine Blood Large H (Negative) Ur Leukocyte Esterase Moderate H (Negative) Urine RBC >182 H (0-5) /hpf Urine WBC 56 H (0-5) /hpf Urine WBC Clumps Rare H (None) /hpf Urine Bacteria Rare H (None) /hpf Urine Mucus Rare H (None) /hpf Microbiology - Last 24 Hours (Table) 08/06/24 11:26 Urine Culture - Final Urine,Suprapubic
--- NOTE | 2024-08-09 09:00 | P.PN ---
Subjective Progress Note Date: 08/08/24 Principal diagnosis: Reason for follow-up is UTI Patient is a 74-year-old male with a past medical history significant for prostate disorder in this patient who did have a history of urinary outflow obstruction requiring a suprapubic catheter presenting to the hospital with penile tip pain and mention he did have some bloody urine through the urethra at times, diagnosed with a possible prostatitis/UTI. On today's evaluation that is 08/08/2024, Patient is afebrile patient is currently on room air and denies having any shortness of breath, the patient denies any chest pain or cough, the patient denies any nausea vomiting did not have any abdominal pain and no diarrhea patient still complaining of pain to the penile tip area but no hematuria. Patient white count is 5.42 creat is 1.4 repeat UA was positive cultures currently pending Objective - Vital Signs Vital signs: Vital Signs Temp 97.6 F 08/08/24 07:45 Pulse 49 L 08/08/24 07:45 Resp 16 08/08/24 07:45 BP 132/78 08/08/24 07:45 Pulse Ox 93 L 08/08/24 07:45 FiO2 Intake & Output 08/07/24 08/08/24 08/08/24 18:59 06:59 18:59 Intake Total 1184 360 Output Total 1900 Balance 1184 -1900 360 Intake: Oral 1184 360 Output: Urine 1900 Other: Voiding Method Indwelling Catheter Indwelling Catheter # Voids 1 - Exam GENERAL DESCRIPTION: An elderly male lying in bed in no distress RESPIRATORY SYSTEM: Unlabored breathing , decreased breath sounds at bases HEART: S1 S2 regular rate and rhythm , ABDOMEN: Soft , no tenderness EXTREMITIES: No edema feet - Labs CBC & Chem 7: 08/08/24 06:33 08/08/24 06:33 Labs: Abnormal Lab Results - Last 24 Hours (Table) 08/07/24 08/08/24 08/08/24 Range/Units 14:12 06:33 06:33 RBC 4.36 L (4.40-5.60) X 10*6/uL Hgb 12.9 L (13.0-17.0) g/dL MCHC 31.2 L (32.0-37.0) g/dL MPV 9.4 L (9.5-12.2) FL Est GFR (CKD-EPI) 53 L (>=60) Calcium 8.3 L (8.7-10.3) mg/dL Total Bilirubin <0.2 L (0.3-1.2) mg/dL Total Protein 5.2 L (6.2-8.2) g/dL Albumin 3.4 L (3.8-4.9) g/dL Urine Protein Trace H (Negative) Urine Blood Large H (Negative) Ur Leukocyte Esterase Moderate H (Negative) Urine RBC >182 H (0-5) /hpf Urine WBC 56 H (0-5) /hpf Urine WBC Clumps Rare H (None) /hpf Urine Bacteria Rare H (None) /hpf Urine Mucus Rare H (None) /hpf Microbiology - Last 24 Hours (Table) 08/06/24 11:26 Urine Culture - Final Urine,Suprapubic Assessment and Plan (1) UTI (urinary tract infection) Current Visit: Yes Status: Acute Code(s): N39.0 - URINARY TRACT INFECTION, SITE NOT SPECIFIED SNOMED Code(s): 47628401 Plan: 1patient presented to hospital with pain to the penile tip with no abnormality on the clinical examination did have some dysuria concerning for possible UTI as the patient did have a positive UA and likely from enteric gram-negative pathogen. 2UA has been obtained through urethra which is positive, with the cultures currently pending 3-patient will be treated with Rocephin 2 g daily while waiting for the culture to finalize. Dictation was produced using [employer] dictation software. please excuse any grammatical, word or spelling errors. Time with Patient: Less than 30
--- NOTE | 2024-08-09 21:24 | P.PN ---
Subjective Progress Note Date: 08/09/24 Principal diagnosis: Reason for follow-up is UTI Patient is a 74-year-old male with a past medical history significant for prostate disorder in this patient who did have a history of urinary outflow obstruction requiring a suprapubic catheter presenting to the hospital with penile tip pain and mention he did have some bloody urine through the urethra at times, diagnosed with a possible prostatitis/UTI. On today's evaluation that is 08/09/2024, patient has been afebrile, patient is breathing comfortably and is currently on room air, patient denies having any significant cough no chest pain, patient denies nausea vomiting or diarrhea and no abdominal pain still complaining of pain to the penile tip some improvement with the pain medication. No new lab has been obtained today culture has been negative Objective - Vital Signs Vital signs: Vital Signs Temp 97.6 F 08/09/24 07:00 Pulse 58 L 08/09/24 07:00 Resp 16 08/09/24 07:00 BP 114/73 08/09/24 07:00 Pulse Ox 93 L 08/09/24 07:00 FiO2 Intake & Output 08/08/24 08/09/24 08/09/24 18:59 06:59 18:59 Intake Total 478 118 Output Total 300 400 Balance 478 -300 -282 Intake: Oral 478 118 Output: Urine 300 400 Other: Voiding Method Indwelling Catheter Indwelling Catheter # Voids 2 # Bowel Movements 1 - Exam GENERAL DESCRIPTION: An elderly male lying in bed in no distress RESPIRATORY SYSTEM: Unlabored breathing , decreased breath sounds at bases HEART: S1 S2 regular rate and rhythm , ABDOMEN: Soft , no tenderness EXTREMITIES: No edema feet - Labs CBC & Chem 7: 08/08/24 06:33 08/08/24 06:33 Labs: Microbiology - Last 24 Hours (Table) 08/07/24 14:12 Urine Culture - Final Urine,Voided Assessment and Plan (1) UTI (urinary tract infection) Current Visit: Yes Status: Acute Code(s): N39.0 - URINARY TRACT INFECTION, SITE NOT SPECIFIED SNOMED Code(s): 98906877 Plan: 1patient presented to hospital with pain to the penile tip with no abnormality on the clinical examination did have some dysuria concerning for possible UTI as the patient did have a positive UA and likely from enteric gram-negative pathogen. 2UA has been obtained through urethra which is positive, with the cultures so far negative 3-p possibly dealing with the prostatitis on Rocephin with a culture negative for resistant pathogen consider 2 to 3-week course of oral Ceftin on discharge. Multiple question concern answered Dictation was produced using [employer] software. please excuse any grammatical, word or spelling errors. Time with Patient: Less than 30
[2024-08-10] MEDS ORDERED: LACTULOSE 20 GM/30 ML CUP PO PRN (05:27)
--- NOTE | 2024-08-10 05:39 | P.PN ---
Subjective Progress Note Date: 08/09/24 patient is a 74-year-old gentleman with past medical history significant for urine retention who presented to the ER for penile pain. Patient has history of urine retention and had a Garcia catheter placed for retention, recently it was switched to a suprapubic catheter. Patient stated that he continues to have penile pain. There is no complaint of any fever or chills. There is no complaint of loss of appetite or weight loss. There is no complaint of nausea vomiting or abdominal pain. Because of his penile pain, patient came to the ER Initial lab work done in the ER showed WBC 6.3, hemoglobin 15.6, platelet count 294, sodium 130s, potassium 4.5, BUN 30, creatinine 1.61, glucose 99, calcium 9.3, AST 21, ALT 21, UA done showed moderate amount of leukocyte Estrace, urine nitrite negative CT abdomen pelvis done showed heterogenous appearance of the bladder with suprapubic catheter in place. There are regions of bladder wall thickening. Questionable cystitis Patient admitted to internal medicine service 08/07. Patient seen and examined. States penile pain has improved. Waiting on urine cultures 08/08. Patient seen and examined. States he feels slightly better. Still complaining of penile pain. Urology recommend prolonged course of antibiotics for possible prostatitis 08/09/2024 Patient is seen in follow-up today with urology and infectious disease following. Patient does have a suprapubic catheter which reports is flowing and continues to report significant penile pain and maintained on pain medications including IV narcotics. Recommend adjusting oral narcotics and limiting IV narcotic use. Cultures have been negative and per infectious disease and urology will continue on prolonged course of oral Ceftin on discharge with outpatient follow-up with urology in the clinic. Patient is currently afebrile and reports to having some constipation. Will add bowel regimen as needed as well as scheduled. Encourage increase activity as tolerated. REVIEW OF SYSTEMS: CONSTITUTIONAL: No fever, no malaise,. CARDIOVASCULAR: No chest pain, no palpitations, no syncope. PULMONARY: No shortness of breath, no cough, GASTROINTESTINAL: No diarrhea, no nausea, no vomiting, no abdominal pain. NEUROLOGICAL: No headaches, no weakness, PHYSICAL EXAMINATION: GENERAL: The patient is alert and oriented x3, not in any acute distress. Well developed, well nourished. Elderly appearing HEENT: Pupils are round and equally reacting to light. EOMI. No scleral icterus. No conjunctival pallor. Normocephalic, atraumatic. No pharyngeal erythema. No thyromegaly. CARDIOVASCULAR: S1 and S2 present. No murmurs, rubs, or gallops. PULMONARY: Chest is clear to auscultation, no wheezing or crackles. ABDOMEN: Soft, nontender, nondistended, normoactive bowel sounds. No palpable organomegaly. Suprapubic catheter seen MUSCULOSKELETAL: No joint swelling or deformity. EXTREMITIES: No cyanosis, clubbing, or pedal edema. NEUROLOGICAL: Gross neurological examination did not reveal any focal deficits. SKIN: No rashes. Assessment: Penile pain Acute cystitis History of urine retention, currently has a suprapubic catheter in place GI prophylaxis DVT prophylaxis Full code Plan: Continue with IV antibiotics with infectious disease following and will transition to prolonged course of antibiotics on discharge in the form of Ceftin Urology following recommend continuing antibiotics and outpatient follow-up in the clinic Patient reporting some discomfort and constipation, will add Encouraged increase activity as tolerated Will follow-up on repeat labs Discuss with other consultations regarding discharge planning in the next 24 to 48 hours. The impression and plan of care has been dictated by Naomi Barr, Nurse Practitioner as directed. Dr. Carter MD I have performed a history and examination and MDM of this patient, discussed the same with the dictator, and agree with the dictator's assessment and plan as written ,documented as a scribe. Based on total visit time, I have performed more than 50% of the visit. Objective - Vital Signs Vital signs: Vital Signs Temp 97.6 F 08/09/24 07:00 Pulse 58 L 08/09/24 07:00 Resp 16 08/09/24 07:00 BP 114/73 08/09/24 07:00 Pulse Ox 93 L 08/09/24 07:00 FiO2 Intake & Output 08/08/24 08/09/24 08/09/24 18:59 06:59 18:59 Intake Total 478 118 Output Total 300 Balance 478 -300 118 Intake: Oral 478 118 Output: Urine 300 Other: Voiding Method Indwelling Catheter Indwelling Catheter # Voids 2 # Bowel Movements 1 - Labs CBC & Chem 7: 08/08/24 06:33 08/08/24 06:33 Labs: Abnormal Lab Results - Last 24 Hours (Table) 08/08/24 Range/Units 06:33 Est GFR (CKD-EPI) 53 L (>=60) Calcium 8.3 L (8.7-10.3) mg/dL Total Bilirubin <0.2 L (0.3-1.2) mg/dL Total Protein 5.2 L (6.2-8.2) g/dL Albumin 3.4 L (3.8-4.9) g/dL Microbiology - Last 24 Hours (Table) 08/07/24 14:12 Urine Culture - Final Urine,Voided
[2024-08-10 08:43] LABS: BUN/Creat Ratio 13.93 Ratio (12.00-20.00); Blood Urea Nitrogen 19.5 mg/dL (9.0-27.0); Calcium 8.3 mg/dL (8.7-10.3); Carbon Dioxide 26.2 mmol/L (21.6-31.8); Chloride 106 mmol/L (96-109); Glucose 88 mg/dL (70-110); Potassium 4.5 mmol/L (3.5-5.5); Sodium 141 mmol/L (135-145)
[2024-08-10 09:04] LABS: Basophils # (A) 0.03 X 10*3/uL (0.00-0.10); Basophils % (A) 0.5 %; Eosinophils # (A) 0.36 X 10*3/uL (0.04-0.35); Eosinophils % (A) 5.9 %; HCT 41.4 % (39.6-50.0); HGB 13.2 g/dL (13.0-17.0); Lymphocytes % (A) 24.6 %; MCHC 31.9 g/dL (32.0-37.0); MCV 94.1 FL (80.0-97.0); Mean Platelet Volume 9.8 FL (9.5-12.2); Monocytes # (A) 0.45 X 10*3/uL (0.20-1.00); Monocytes % (A) 7.4 %; NRBC Per 100 WBC 0 X 10*3/uL (0.00-0.01); Neutrophils # (A) 3.74 X 10*3/uL (1.80-7.70); Neutrophils % (A) 61.3 %; Platelet Count 272 X 10*3/uL (140-440); RDW 13.7 % (11.5-14.5)
[2024-08-10] MEDS: SENNOSIDES 8.6 MG TAB PO SCH (09:11)
[2024-08-10] MEDS: polyethylene glycoL 3350 17 GM POWD.PACK PO SCH (09:12)
[2024-08-10] MEDS: methylPREDNISolone SOD SUCCI 125 MG/2 ML VIAL IV SCH (16:26)
--- NOTE | 2024-08-11 06:00 | P.PN ---
Subjective Progress Note Date: 08/10/24 patient is a 74-year-old gentleman with past medical history significant for urine retention who presented to the ER for penile pain. Patient has history of urine retention and had a Garcia catheter placed for retention, recently it was switched to a suprapubic catheter. Patient stated that he continues to have penile pain. There is no complaint of any fever or chills. There is no complaint of loss of appetite or weight loss. There is no complaint of nausea vomiting or abdominal pain. Because of his penile pain, patient came to the ER Initial lab work done in the ER showed WBC 6.3, hemoglobin 15.6, platelet count 294, sodium 130s, potassium 4.5, BUN 30, creatinine 1.61, glucose 99, calcium 9.3, AST 21, ALT 21, UA done showed moderate amount of leukocyte Estrace, urine nitrite negative CT abdomen pelvis done showed heterogenous appearance of the bladder with suprapubic catheter in place. There are regions of bladder wall thickening. Questionable cystitis Patient admitted to internal medicine service 08/07. Patient seen and examined. States penile pain has improved. Waiting on urine cultures 08/08. Patient seen and examined. States he feels slightly better. Still complaining of penile pain. Urology recommend prolonged course of antibiotics for possible prostatitis 08/09/2024 Patient is seen in follow-up today with urology and infectious disease following. Patient does have a suprapubic catheter which reports is flowing and continues to report significant penile pain and maintained on pain medications including IV narcotics. Recommend adjusting oral narcotics and limiting IV narcotic use. Cultures have been negative and per infectious disease and urology will continue on prolonged course of oral Ceftin on discharge with outpatient follow-up with urology in the clinic. Patient is currently afebrile and reports to having some constipation. Will add bowel regimen as needed as well as scheduled. Encourage increase activity as tolerated. 08/10/2024 Patient is seen in follow-up today being followed by infectious disease maintained on ceftriaxone. Patient was evaluated by urology previously reporting to continue with prolonged antibiotics and outpatient follow-up for cystoscopy in the clinic. Patient continues to report extreme penile pain and on pain regimen. Recommend increased activity as tolerated and frequent walking in the halls also avoiding IV narcotics if possible. Did place bowel regimen and patient reports no bowel movement as of yet. Patient reports is passing gas. Patient is afebrile and cultures thus far negative. Attempted to consult pain management for possible injection in the L-spine area that could potentially alleviate some of the discomfort of the penile pain. They report they do not treat that type of pain. Will reconsult urology and appreciate input and recommendations REVIEW OF SYSTEMS: CONSTITUTIONAL: No fever, no malaise,. CARDIOVASCULAR: No chest pain, no palpitations, no syncope. PULMONARY: No shortness of breath, no cough, GASTROINTESTINAL: No diarrhea, no nausea, no vomiting, no abdominal pain. NEUROLOGICAL: No headaches, no weakness, reports continued severe penile pain PHYSICAL EXAMINATION: GENERAL: The patient is alert and oriented x3, not in any acute distress. Well developed, well nourished. Elderly appearing HEENT: Pupils are round and equally reacting to light. EOMI. No scleral icterus. No conjunctival pallor. Normocephalic, atraumatic. No pharyngeal erythema. No thyromegaly. CARDIOVASCULAR: S1 and S2 present. No murmurs, rubs, or gallops. PULMONARY: Chest is clear to auscultation, no wheezing or crackles. ABDOMEN: Soft, nontender, nondistended, normoactive bowel sounds. No palpable organomegaly. Suprapubic catheter seen MUSCULOSKELETAL: No joint swelling or deformity. EXTREMITIES: No cyanosis, clubbing, or pedal edema. NEUROLOGICAL: Gross neurological examination did not reveal any focal deficits. SKIN: No rashes. Assessment: Penile pain possibly secondary to acute cystitis Acute cystitis, secondary to suprapubic catheter History of urine retention, currently has a suprapubic catheter in place GI prophylaxis DVT prophylaxis Full code Plan: Continue with IV antibiotics with infectious disease following and will transition to prolonged course of antibiotics on discharge in the form of Ceftin Urology following recommend continuing antibiotics and outpatient follow-up in the clinic. Will consult urology for reevaluation as patient continues to report significant penile pain Attempted to consult pain management for possible L-spine injection that may alleviate some of this penile pain Continue with bowel regimen as needed as well as scheduled Encouraged increase activity as tolerated. Encourage patient to walk frequently through the halls Will follow-up on repeat labs Discuss with other consultations regarding discharge planning possibly in the next 24 to 48 hours. The impression and plan of care has been dictated by Naomi Barr, Nurse Practitioner as directed. Dr. Carter MD I have performed a history and examination and MDM of this patient, discussed the same with the dictator, and agree with the dictator's assessment and plan as written ,documented as a scribe. Based on total visit time, I have performed more than 50% of the visit. Objective - Vital Signs Vital signs: Vital Signs Temp 97.8 F 08/10/24 07:00 Pulse 63 08/10/24 07:00 Resp 16 08/10/24 07:00 BP 123/59 08/10/24 07:00 Pulse Ox 97 08/10/24 07:00 FiO2 Intake & Output 08/09/24 08/10/24 08/10/24 18:59 06:59 18:59 Intake Total 236 118 Output Total 600 550 Balance -364 -550 118 Intake: Oral 236 118 Output: Urine 600 550 Other: Voiding Method Indwelling Catheter Indwelling Catheter # Voids 0 - Labs CBC & Chem 7: 08/10/24 05:34 08/10/24 05:34 Labs: Abnormal Lab Results - Last 24 Hours (Table) 08/10/24 08/10/24 Range/Units 05:34 05:34 MCHC 31.9 L (32.0-37.0) g/dL Eosinophils # 0.36 H (0.04-0.35) X 10*3/uL Est GFR (CKD-EPI) 53 L (>=60) Calcium 8.3 L (8.7-10.3) mg/dL
--- NOTE | 2024-08-11 11:03 | P.GSCN ---
History of Present Illness Consult date: 08/11/24 History of present illness: we are asked to see this 74-year-old gentleman who is in urinary retention and has penile pain. He was seen by several days ago for this. The patient has a suprapubic tube placed by urologist in [place]. Patient has had urine retention since November. He initially had a urethral catheter which she couldn't tolerate. He couldn't tolerate CIC thus a suprapubic tube was placed. Suprapubic tube recently was plugged and the patient voided spontaneously per urethra. The suprapubic tube was changed by the urologist in [place] and the patient apparently is ideal for a TURP in late July. Came in the hospital because of persistent penile pain. Is not febrile. There is no significant infection.he had a TURP some 30 years ago. He has not seen a urologist until this spring. Review of Systems All systems: negative - Constitutional Denies fever, Denies weight loss - EENT Eyes: denies blurred vision Ears, nose, mouth and throat: Denies dysphagia - Cardiovascular Denies chest pain, Denies shortness of breath - Respiratory Denies cough, Denies 7 - Gastrointestinal Reports as per HPI - Genitourinary Denies dysuria, Denies hematuria - Integumentary Denies rash, Denies unusual bruising - Neurological Denies headaches, Denies syncope - Hematologic/Lymphatic Denies easy bleeding, Denies easy bruising Past Medical History Past Medical History: Prostate Disorder Additional Past Medical History / Comment(s): superpubic catheter History of Any Multi-Drug Resistant Organisms: None Reported Past Surgical History: Prostate Surgery Past Anesthesia/Blood Transfusion Reactions: No Reported Reaction Past Psychological History: Bipolar, Depression Smoking Status: Current every day smoker Past Alcohol Use History: Rare Past Drug Use History: None Reported Medications and Allergies Home Medications Medication Instructions Recorded Confirmed Type Acetaminophen-Codeine 300-30mg 1 tab PO Q4H PRN 08/05/24 08/05/24 History [Tylenol w/codeine #3] FLUoxetine HCL [PROzac] 20 mg PO HS 08/05/24 08/05/24 History FLUoxetine HCL [Prozac] 40 mg PO DAILY 08/05/24 08/05/24 History L.acidoph,Paracasei, B.lactis 1 cap PO DAILY 08/05/24 08/05/24 History [Probiotic] Levofloxacin [Levaquin] 750 mg PO DAILY 08/05/24 08/05/24 History Lovastatin [Mevacor] 40 mg PO HS 08/05/24 08/05/24 History Meloxicam [Mobic] 7.5 mg PO DAILY 08/05/24 08/05/24 History Tamsulosin [Flomax] 0.4 mg PO BID 08/05/24 08/05/24 History buPROPion [Wellbutrin] 75 mg PO BID 08/05/24 08/05/24 History traZODone HCL [Desyrel] 100 mg PO HS 08/05/24 08/05/24 History Allergies Allergy/AdvReac Type Severity Reaction Status Date / Time No Known Allergies Allergy Verified 08/05/24 14:34 Surgical - Exam Vital Signs Temp Pulse Resp BP Pulse Ox 98.7 F 77 16 110/76 96 08/05/24 12:46 08/05/24 12:46 08/05/24 12:46 08/05/24 12:46 08/05/24 12:46 - General well developed, well nourished, no distress - Eyes normal ocular movement, no icteric - ENT no hearing loss, no congestion - Neck no masses, trachea midline - Respiratory normal respiratory effort, clear to auscultation - Abdomen Abdomen: soft, non tender, no guarding, no rigid, no rebound - Genitourinary suprapubic tube with clear urine. 20 gram benign prostate - Integumentary no rash, no abnormal pigmentation - Neurologic no disoriented, no combative - Psychiatric oriented to time, oriented to person, oriented to place, speech is normal, memory intact Results - Labs 08/10/24 05:34 08/10/24 05:34 Assessment and Plan Assessment: impression: Urine retention probably secondary to obstructing prostate, regrowth of tissue. Penile pain due to sensitivity to suprapubic tube and prostate irritation. Recommendations: From a urologic standpoint nothing needs to be done immediately for the penile pain. The penile pain is due to the suprapubic tube and his sensitivity to the catheter. The patient has asked that I assume his urologic care. He needs urodynamic studies to assess the function of his bladder which sounds from his history that it is functioning. If it is functioning then he will probably need a TURP. This is been discussed with the patient. Time with Patient: Greater than 30
--- NOTE | 2024-08-11 12:01 | P.PN ---
Subjective Progress Note Date: 08/10/24 Principal diagnosis: Reason for follow-up is UTI Patient is a 74-year-old male with a past medical history significant for prostate disorder in this patient who did have a history of urinary outflow obstruction requiring a suprapubic catheter presenting to the hospital with penile tip pain and mention he did have some bloody urine through the urethra at times, diagnosed with a possible prostatitis/UTI. On today's evaluation that is 08/10/2024, Patient is afebrile this morning patient denies having any chest pain shortness of breath or cough, the patient is currently on room air, patient denies any abdominal pain no diarrhea no nausea no vomiting patient still complaining of pain to the penile tube mentions some improvement with movement of his trunk bending forward Patient white count 6.10, creat is 1.4 culture have been negative Objective - Vital Signs Vital signs: Vital Signs Temp 97.8 F 08/10/24 07:00 Pulse 63 08/10/24 07:00 Resp 16 08/10/24 07:00 BP 123/59 08/10/24 07:00 Pulse Ox 97 08/10/24 07:00 FiO2 Intake & Output 08/09/24 08/10/24 08/10/24 18:59 06:59 18:59 Intake Total 236 118 Output Total 600 550 Balance -364 -550 118 Intake: Oral 236 118 Output: Urine 600 550 Other: Voiding Method Indwelling Catheter Indwelling Catheter # Voids 0 - Exam GENERAL DESCRIPTION: An elderly male lying in bed in no distress RESPIRATORY SYSTEM: Unlabored breathing , decreased breath sounds at bases HEART: S1 S2 regular rate and rhythm , ABDOMEN: Soft , no tenderness EXTREMITIES: No edema feet - Labs CBC & Chem 7: 08/10/24 05:34 08/10/24 05:34 Labs: Abnormal Lab Results - Last 24 Hours (Table) 08/10/24 08/10/24 Range/Units 05:34 05:34 MCHC 31.9 L (32.0-37.0) g/dL Eosinophils # 0.36 H (0.04-0.35) X 10*3/uL Est GFR (CKD-EPI) 53 L (>=60) Calcium 8.3 L (8.7-10.3) mg/dL Assessment and Plan (1) UTI (urinary tract infection) Current Visit: Yes Status: Acute Code(s): N39.0 - URINARY TRACT INFECTION, SITE NOT SPECIFIED SNOMED Code(s): 63237420 Plan: 1patient presented to hospital with pain to the penile tip with no abnormality on the clinical examination did have some dysuria concerning for possible UTI as the patient did have a positive UA and likely from enteric gram-negative pathogen. 2UA has been obtained through urethra which is positive, with the cultures so far negative 3-with a question of possible referred pain discussed in detail with the admitting team may benefit from pain medicine evaluation or he short course of steroid to see how he responds to it Dictation was produced using [employer] dictation software. please excuse any grammatical, word or spelling errors. Time with Patient: Less than 30
--- NOTE | 2024-08-11 12:02 | P.PN ---
Subjective Progress Note Date: 08/11/24 Principal diagnosis: Reason for follow-up is UTI Patient is a 74-year-old male with a past medical history significant for prostate disorder in this patient who did have a history of urinary outflow obstruction requiring a suprapubic catheter presenting to the hospital with penile tip pain and mention he did have some bloody urine through the urethra at times, diagnosed with a possible prostatitis/UTI. On today's evaluation that is 08/11/2024,the patient denies any fever or any chills, patient is breathing comfortably on room air, the patient denies chest pain shortness of breath and no significant cough, patient denies abdominal pain, no nausea vomiting or diarrhea. Patient mention improvement in his symptoms today especially after he did have a talk with Dr. Galindo Objective - Vital Signs Vital signs: Vital Signs Temp 97.5 F L 08/11/24 07:00 Pulse 65 08/11/24 07:00 Resp 16 08/11/24 07:00 BP 122/74 08/11/24 07:00 Pulse Ox 92 L 08/11/24 07:00 FiO2 Intake & Output 08/10/24 08/11/24 08/11/24 18:59 06:59 18:59 Intake Total 354 118 Output Total 900 300 Balance -546 -300 118 Intake: Oral 354 118 Output: Urine 900 300 Other: Voiding Method Indwelling Catheter Indwelling Catheter - Exam GENERAL DESCRIPTION: An elderly male lying in bed in no distress RESPIRATORY SYSTEM: Unlabored breathing , decreased breath sounds at bases HEART: S1 S2 regular rate and rhythm , ABDOMEN: Soft , no tenderness EXTREMITIES: No edema feet - Labs CBC & Chem 7: 08/10/24 05:34 08/10/24 05:34 Assessment and Plan (1) UTI (urinary tract infection) Current Visit: Yes Status: Acute Code(s): N39.0 - URINARY TRACT INFECTION, SITE NOT SPECIFIED SNOMED Code(s): 81978971 Plan: 1patient presented to hospital with pain to the penile tip with no abnormality on the clinical examination did have some dysuria concerning for possible UTI as the patient did have a positive UA and likely from enteric gram-negative pathogen. 2UA has been obtained through urethra which is positive, with the cultures so far negative 3-patient mention improvement in his symptoms questionable related to steroids versus discussion with the urology as the patient possibly scheduled for cystoscopy next week we will consider a 7 to 10-day course of oral Ceftin on discharge Multiple question concern also daily midterm Dictation was produced using [employer] software. please excuse any grammatical, word or spelling errors. Time with Patient: Less than 30
[2024-08-11 13:31] VITALS: BP 121/77; PULSE 79; RESP 17; TEMP 97.7
--- NOTE | 2024-08-12 17:42 | P.DS ---
Providers Date of admission: 08/05/24 13:29 Expected date of discharge: 08/11/24 Attending physician: Munira Harper Consults: 08/05/24 13:27 Consult Physician Routine Consulting Provider: Romulo Brown Consult Reason/Comments: penis pain, suprapubic cath Do you want consulting provider notified?: Yes 08/06/24 10:39 Consult Physician Routine Consulting Provider: Chapis Vieyra Consult Reason/Comments: Cystitis Do you want consulting provider notified?: Yes 08/10/24 15:26 Consult Physician Routine Consulting Provider: Jose Luis Galindo Consult Reason/Comments: increasing penis pain Do you want consulting provider notified?: Yes [facility]: Final diagnosis Penile pain likely secondary to acute cystitis Acute cystitis, secondary to suprapubic catheter History of urine retention, currently has a suprapubic catheter in place GI prophylaxis DVT prophylaxis Full code Discharge disposition Patient is being discharged in a stable condition with guarded prognosis to home. Patient will follow-up with primary care provider in the outpatient setting upon discharge. Patient is to continue with oral Ceftin 500 mg twice daily for 10 days on discharge and also close outpatient follow-up with urology as discussed and scheduled. Total time taken is greater than 35 minutes. Hospital course This is a 74-year-old male who was recently admitted with penile pain and concerns of acute cystitis secondary to suprapubic catheter. Patient does have chronic history of urinary retention underwent multiple surgeries with other u rologist previously and continues with suprapubic catheter. Patient cultures are negative although showing some clinical improvement on antibiotic with infectious disease and urology following. Urology recommends continuing current antibiotic regimen in the form of Ceftin twice daily for 10 days and will follow-up regarding cystoscopy and further intervention. Patient is agreeable with this and reports his pain is somewhat improved. Patient encouraged to continue bowel regimen and limit narcotic use is much as possible. Patient will follow with Dr. Galindo urology outpatient this week as they have discussed. Please refer to other consultation notes for further HPI. Patient has been cleared by consultations for discharge. Currently no reports of chest pain, shortness of breath, or palpitations. Patient is afebrile. No reports of nausea or vomiting and patient is tolerating diet. Patient will be discharged home today. Guarded prognosis Physical exam: Gen: This is a 74-year-old male who is awake, alert and oriented x 3, well- developed, elderly appearing HEENT: Head is atraumatic, normocephalic. Pupils equal, round. Sclerae is anicteric. NECK: Supple. No JVD. No lymphadenopathy. No thyromegaly. LUNGS: Clear to auscultation. No wheezes or rhonchi. No intercostal retractions. HEART: Regular rate and rhythm. No murmur. ABDOMEN: Soft. Nontender. Bowel sounds are present. No masses. Mild suprapubic tenderness. EXTREMITIES: No pedal edema. No calf tenderness. NEUROLOGICAL: Patient is awake, alert and oriented x3. Cranial nerves 2 through 12 are grossly intact. Please refer to medication reconciliation sheet for a list of medications. The impression and plan of care has been dictated by Naomi Barr, Nurse Practitioner as directed. Dr. Carter MD I have performed a history and examination and MDM of this patient, discussed the same with the dictator, and agree with the dictator's assessment and plan as written ,documented as a scribe. Based on total visit time, I have performed more than 50% of the visit. Patient Condition at Discharge: Good Plan - Discharge Summary Discharge Rx Participant: No New Discharge Prescriptions: New cefuroxime axetiL [Ceftin] 500 mg PO 20 #10 tab Lactulose [Cephulac] 20 gm PO TID PRN #360 ml PRN Reason: Constipation methylPREDNISolone Dose Pack [Medrol Dose Pack] 4 mg PO DIRECTED #21 tab polyethylene glycoL 3350 [Miralax] 17 gm PO DAILY #30 packet HYDROcodone/APAP 10-325MG [[place] 10-325] 1 each PO Q6HR PRN #12 tab PRN Reason: Moderate To Severe Pain (4-10) Phenazopyridine [Pyridium] 200 mg PO TID #30 tab Sennosides [Senokot] 8.6 mg PO BID #60 tab Continue traZODone HCL [Desyrel] 100 mg PO HS Tamsulosin [Flomax] 0.4 mg PO BID Meloxicam [Mobic] 7.5 mg PO DAILY FLUoxetine HCL [PROzac] 40 mg PO DAILY Acetaminophen-Codeine 300-30mg [Tylenol w/codeine #3] 1 tab PO Q4H PRN PRN Reason: Pain FLUoxetine HCL [PROzac] 20 mg PO HS Lovastatin [Mevacor] 40 mg PO HS buPROPion [Wellbutrin] 75 mg PO BID L.acidoph,Paracasei, B.lactis [Probiotic] 1 cap PO DAILY Discontinued Levofloxacin [Levaquin] 750 mg PO DAILY Discharge Medication List Acetaminophen-Codeine 300-30mg [Tylenol w/codeine #3] 1 tab PO Q4H PRN 08/05/24 [History] FLUoxetine HCL [PROzac] 20 mg PO HS 08/05/24 [History] FLUoxetine HCL [PROzac] 40 mg PO DAILY 08/05/24 [History] L.acidoph,Paracasei, B.lactis [Probiotic] 1 cap PO DAILY 08/05/24 [History] Lovastatin [Mevacor] 40 mg PO HS 08/05/24 [History] Meloxicam [Mobic] 7.5 mg PO DAILY 08/05/24 [History] Tamsulosin [Flomax] 0.4 mg PO BID 08/05/24 [History] buPROPion [Wellbutrin] 75 mg PO BID 08/05/24 [History] traZODone HCL [Desyrel] 100 mg PO HS 08/05/24 [History] HYDROcodone/APAP 10-325MG [[place] 10-325] 1 each PO Q6HR PRN #12 tab 08/11/24 [Rx] Lactulose [Cephulac] 20 gm PO TID PRN #360 ml 08/11/24 [Rx] Phenazopyridine [Pyridium] 200 mg PO TID #30 tab 08/11/24 [Rx] Sennosides [Senokot] 8.6 mg PO BID #60 tab 08/11/24 [Rx] cefuroxime axetiL [Ceftin] 500 mg PO 20 #10 tab 08/11/24 [Rx] methylPREDNISolone Dose Pack [Medrol Dose Pack] 4 mg PO DIRECTED #21 tab 08/11/24 [Rx] polyethylene glycoL 3350 [Miralax] 17 gm PO DAILY #30 packet 08/11/24 [Rx] Follow up Appointment(s)/Referral(s): Nonstaff,Physician [REFERRING] - 1-2 days Chapis Vieyra MD [STAFF PHYSICIAN] - 1 Week Jose Luis Galindo MD [STAFF PHYSICIAN] - 1 Week (Office will call with appointment date and time.) Activity/Diet/Wound Care/Special Instructions: Activity limited until follow-up Follow-up with primary care provider on discharge Follow-up with infectious disease outpatient Follow-up with urology Dr. Galindo as discussed this week per Dr. Galindo Continue taking medications as prescribed Discharge Disposition: HOME SELF-CARE
== END 2024-08-11 15:07 | disposition home or self-care (01) | DRG 699 ==
LOC: EC 12:42 → 6NMEDSUR 13:28 → OBSVTOIN 13:29 → 6NMEDSUR 18:36
PROVIDERS: ADMIT Hospitalist; ATTEND Hospitalist
DX: T83.510A Infection and inflammatory reaction due to cystostomy catheter, initial encounter (principal); N30.01 Acute cystitis with hematuria; F31.9 Bipolar disorder, unspecified; F17.200 Nicotine dependence, unspecified, uncomplicated; R33.9 Retention of urine, unspecified; N42.9 Disorder of prostate, unspecified; N41.9 Inflammatory disease of prostate, unspecified; K59.00 Constipation, unspecified; N31.2 Flaccid neuropathic bladder, not elsewhere classified
CPT/HCPCS: 36415; 74177; 80048; 80053; 81001; 82150; 83690; 85025; 87086; 96361; 96365; 96366; 96375; 96376; 99285

== ENCOUNTER 2024-08-23 00:58 | Emergency (ER) | payer MEDICARE ==
[2024-08-23 01:15] VITALS: RESP 18; TEMP 98.1
[2024-08-23 02:18] LABS: Appearance,Urine Cloudy (Clear); Bacteria,Urine Few /hpf; Bilirubin,Urine Negative (Negative); Blood,Urine Large (Negative); Budding Yeast,Urine Few /hpf; Color,Urine Dark Brown; Glucose,Urine (UA) Negative (Negative); Ketones,Urine Negative (Negative); Leukocyte Esterase,Urine Small (Negative); Mucus,Urine Moderate /hpf; Nitrite,Urine Negative (Negative); PH, Urine 5.5 (5.0-8.0); Protein,Urine 1+ (Negative); RBC,Urine >182 /hpf (0-5); Specific Gravity,Urine 1.021 (1.001-1.035); Squamous Epithelial Cell,Urine 3 /hpf (0-4); Urobilinogen,Urine <2.0 mg/dL (<2.0); WBC,Urine 5 /hpf (0-5)
[2024-08-23] MEDS: HYDROmorphone 1 MG/ML 1 ML SYRINGE IM STA ×2 (03:01→08:59)
--- NOTE | 2024-08-23 03:28 | ED ---
General Adult HPI - General Chief complaint: Urogenital Stated complaint: blood in urine Time Seen by Provider: 08/23/24 02:24 Source: patient, RN notes reviewed, old records reviewed Mode of arrival: ambulatory - History of Present Illness Initial comments: 74-year-old male presents with penile pain. This has been an ongoing issue and the patient had recent admission to this institution. He is currently on [place] and taking Motrin for pain. He has a suprapubic catheter which was placed at outside hospital. He has an appointment to see urology today but pain was too severe and he could not tolerate the pain at home with home medications. No vomiting. No fever. - Related Data Home Medications Medication Instructions Recorded Confirmed Acetaminophen-Codeine 300-30mg 1 tab PO Q4H PRN 08/05/24 08/05/24 [Tylenol w/codeine #3] FLUoxetine HCL [PROzac] 20 mg PO HS 08/05/24 08/05/24 FLUoxetine HCL [PROzac] 40 mg PO DAILY 08/05/24 08/05/24 L.acidoph,Paracasei, B.lactis 1 cap PO DAILY 08/05/24 08/05/24 [Probiotic] Lovastatin [Mevacor] 40 mg PO HS 08/05/24 08/05/24 Meloxicam [Mobic] 7.5 mg PO DAILY 08/05/24 08/05/24 Tamsulosin [Flomax] 0.4 mg PO BID 08/05/24 08/05/24 buPROPion [Wellbutrin] 75 mg PO BID 08/05/24 08/05/24 traZODone HCL [Desyrel] 100 mg PO HS 08/05/24 08/05/24 Previous Rx's Medication Instructions Recorded HYDROcodone/APAP 10-325MG [[place] 1 each PO Q6HR PRN #12 tab 08/11/24 10-325] Lactulose [Cephulac] 20 gm PO TID PRN #360 ml 08/11/24 Phenazopyridine [Pyridium] 200 mg PO TID #30 tab 08/11/24 Sennosides [Senokot] 8.6 mg PO BID #60 tab 08/11/24 cefuroxime axetiL [Ceftin] 500 mg PO 20 #10 tab 08/11/24 methylPREDNISolone Dose Pack 4 mg PO DIRECTED #21 tab 08/11/24 [Medrol Dose Pack] polyethylene glycoL 3350 [Miralax] 17 gm PO DAILY #30 packet 08/11/24 Allergies Allergy/AdvReac Type Severity Reaction Status Date / Time No Known Allergies Allergy Verified 08/23/24 01:15 Review of Systems ROS Statement: Those systems with pertinent positive or pertinent negative responses have been documented in the HPI. ROS Other: All systems not noted in ROS Statement are negative. Past Medical History Past Medical History: Prostate Disorder Additional Past Medical History / Comment(s): superpubic catheter 03/2024 History of Any Multi-Drug Resistant Organisms: None Reported Past Surgical History: Prostate Surgery Past Anesthesia/Blood Transfusion Reactions: No Reported Reaction Past Psychological History: Bipolar, Depression Smoking Status: Current every day smoker Past Alcohol Use History: Rare Past Drug Use History: None Reported General Exam General appearance: alert, in no apparent distress Head exam: Present: atraumatic, normocephalic Eye exam: Present: normal appearance, PERRL Respiratory exam: Present: normal lung sounds bilaterally. Absent: respiratory distress, wheezes Cardiovascular Exam: Present: regular rate, normal rhythm GI/Abdominal exam: Present: soft, other (Suprapubic catheter, no erythema). Ab sent: distended, tenderness exam: Present: normal inspection. Absent: urethral discharge Neurological exam: Present: alert, oriented X3 Psychiatric exam: Present: normal affect, normal mood Skin exam: Present: warm, dry, intact Course Vital Signs 08/23/24 01:11 Temperature 98.1 F Pulse Rate 71 Respiratory 18 Rate Blood Pressure 101/70 O2 Sat by Pulse 96 Oximetry Medical Decision Making - Medical Decision Making Was pt. sent in by a medical professional or institution (, PA, DIRECTOR INFORMATION SECURITY, urgent care, hospital, or jail...) When possible be specific @ -No Did you speak to anyone other than the patient for history (EMS, parent, family, police, friend...)? What history was obtained from this source @ -No Did you review nursing and triage notes (agree or disagree)? Why? @ -I reviewed and agree with nursing and triage notes Were old charts reviewed (outside hosp., previous admission, EMS record, old EKG, old radiological studies, urgent care reports/EKG's, jail records)? Report findings @ -No old charts were reviewed Differential Abdominal Pain Men: Appendicitis, cholecystitis, diverticulosis, ischemic bowel, pancreatitis, hepatitis, UTI, gastroenteritis, AAA, incarcerated hernia, bowel obstruction, constipation, inflammatory bowel, hepatitis, peptic ulcer disease, splenic infarction, perforated viscus, testicular torsion, this is not meant to be an all-inclusive list EKG interpreted by me (3pts min.). @ -As above X-rays interpreted by me (1pt min.). @ -None done CT interpreted by me (1pt min.). @ -None done U/S interpreted by me (1pt. min.). @ -None done What testing was considered but not performed or refused? (CT, X-rays, U/S, labs)? Why? @ -None What meds were considered but not given or refused? Why? @ -None Did you discuss the management of the patient with other professionals (professionals i.e. , PA, DIRECTOR INFORMATION SECURITY, lab, RT, psych nurse, social work msw, detailer pharmaceuticals, teacher, ambulance officer, telehealth case manager)? Give summary @ -No Was smoking cessation discussed for >3mins.? @ -No Was critical care preformed (if so, how long)? @ -No Were there social determinants of health that impacted care today? How? (Homelessness, low income, unemployed, alcoholism, drug addiction, transportation, low edu. Level, literacy, decrease access to med. care, detention, rehab)? @ -No Was there de-escalation of care discussed even if they declined (Discuss DNR or withdrawal of care, Hospice)? DNR status @ -No What co-morbidities impacted this encounter? (DM, HTN, Smoking, COPD, CAD, Cancer, CVA, ARF, Chemo, Hep., AIDS, mental health diagnosis, sleep apnea, morbid obesity)? @Suprapubic catheter Was patient admitted / discharged? Hospital course, mention meds given and route, prescriptions, significant lab abnormalities, going to OR and other pe rtinent info. @74-year-old male with persistent penile pain. The exam of the penis is unremarkable. Patient has an suprapubic catheter which does not appear to be infected. Greater than 182 RBCs and rare bacteria. Urine culture is obtained. The patient has an appointment with urology today for further evaluation of this ongoing symptom. I do feel the patient would be best served by maintaining this appointment. Pain is controlled in the emergency department with intramuscular Dilaudid. Patient stable for discharge. Undiagnosed new problem with uncertain prognosis? @ -No Drug Therapy requiring intensive monitoring for toxicity (Heparin, Nitro, Insulin, Cardizem)? @ -No Were any procedures done? @ -No Diagnosis/symptom? @ -Penile pain Acute, or Chronic, or Acute on Chronic? @ -Acute Uncomplicated (without systemic symptoms) or Complicated (systemic symptoms)? @ -Default Side effects of treatment? @ -No Exacerbation, Progression, or Severe Exacerbation? @ -No Poses a threat to life or bodily function? How? (Chest pain, USA, CT, pneumonia, PE, COPD, DKA, ARF, appy, cholecystitis, CVA, Diverticulitis, Homicidal, Suicidal, threat to staff... and all critical care pts) @ -No - Lab Data Lab Results 08/23/24 Range/Units 01:15 Urine Color Dark Brown Urine Appearance Cloudy (Clear) Urine pH 5.5 (5.0-8.0) Ur Specific [place] 1.021 (1.001-1.035) Urine Protein 1+ H (Negative) Urine Glucose (UA) Negative (Negative) Urine Ketones Negative (Negative) Urine Blood Large H (Negative) Urine Nitrite Negative (Negative) Urine Bilirubin Negative (Negative) Urine Urobilinogen <2.0 (<2.0) mg/dL Ur Leukocyte Esterase Small H (Negative) Urine RBC >182 H (0-5) /hpf Urine WBC 5 (0-5) /hpf Ur Squamous Epith Cells 3 (0-4) /hpf Urine Bacteria Few H (None) /hpf Urine Mucus Moderate H (None) /hpf Urine Yeast (Budding) Few H (None) /hpf Disposition Clinical Impression: Painful penis, Suprapubic catheter Disposition: HOME SELF-CARE Condition: Fair Additional Instructions: Maintain your appointment with urology today Is patient prescribed a controlled substance at d/c from ED?: No Referrals: Winnie Ayers PAC [Primary Care Provider] - 1-2 days Jose Luis Galindo MD [STAFF PHYSICIAN] - 1-2 days Time of Disposition: 07:00
[2024-08-23 08:59] VITALS: BP 112/71; PULSE 64
== END 2024-08-23 11:00 | disposition home or self-care (01) ==
LOC: EC 00:58
DX: N48.89 Other specified disorders of penis (principal); Z46.6 Encounter for fitting and adjustment of urinary device; F17.200 Nicotine dependence, unspecified, uncomplicated
CPT/HCPCS: 81001; 87086; 99283; 96372 ×2; J1171

== ENCOUNTER 2024-09-11 10:25 | Inpatient (IN) | payer MEDICARE ==
--- NOTE | 2024-09-11 11:08 | ED ---
Male Urogenital HPI - General Chief complaint: Urogenital Stated complaint: retaining urine Time Seen by Provider: 09/11/24 10:32 Source: patient, RN notes reviewed Mode of arrival: ambulatory Limitations: no limitations - History of Present Illness Initial comments: This is a 74-year-old male who presents to the emergency department for problems with urinary retention. Patient had a suprapubic catheter that was removed couple of weeks ago and replaced with a Garcia catheter. The Garcia catheter was then removed about a week ago to see if he would be able to urinate on his own. States that the first couple of days he was able to urinate somewhat, but it was largely old blood and blood clots. The following days afterwards he only urinated around 100 mL of urine a day and states that he has not been able to go aside from a few drops since last night. He now reports increasing suprapubic and penile pain. Believes that he needs to have another suprapubic catheter placed. Patient states that he can only have a Garcia catheter placed if he is sedated, as he tenses up too much. States that he was also told he had either prostate or bladder cancer about a week ago and is unsure of the extent of this. - Related Data Home Medications Medication Instructions Recorded Confirmed FLUoxetine HCL [PROzac] 20 mg PO HS 08/05/24 09/11/24 FLUoxetine HCL [PROzac] 40 mg PO DAILY 08/05/24 09/11/24 L.acidoph,Paracasei, B.lactis 1 cap PO DAILY 08/05/24 09/11/24 [Probiotic] Lovastatin [Mevacor] 40 mg PO HS 08/05/24 09/11/24 Meloxicam [Mobic] 7.5 mg PO DAILY 08/05/24 09/11/24 Tamsulosin [Flomax] 0.4 mg PO BID 08/05/24 09/11/24 buPROPion [Wellbutrin] 75 mg PO BID 08/05/24 09/11/24 traZODone HCL [Desyrel] 100 mg PO HS 08/05/24 09/11/24 ALPRAZolam [Xanax] 0.5 mg PO Q8H PRN 09/11/24 09/11/24 HYDROcodone/APAP 5-325MG [[place] 1 tab PO Q6H PRN 09/11/24 09/11/24 5-325] Ketorolac [Toradol] 10 mg PO Q6HR PRN 09/11/24 09/11/24 Previous Rx's Medication Instructions Recorded Lactulose [Cephulac] 20 gm PO TID PRN #360 ml 08/11/24 Sennosides [Senokot] 8.6 mg PO BID #60 tab 08/11/24 polyethylene glycoL 3350 [Miralax] 17 gm PO DAILY #30 packet 08/11/24 Allergies Allergy/AdvReac Type Severity Reaction Status Date / Time No Known Allergies Allergy Verified 09/11/24 14:56 Review of Systems ROS Statement: Those systems with pertinent positive or pertinent negative responses have been documented in the HPI. ROS Other: All systems not noted in ROS Statement are negative. Past Medical History Past Medical History: Cancer, Prostate Disorder Additional Past Medical History / Comment(s): superpubic catheter 03/2024 History of Any Multi-Drug Resistant Organisms: None Reported Past Surgical History: Prostate Surgery Past Anesthesia/Blood Transfusion Reactions: No Reported Reaction Past Psychological History: Bipolar, Depression Smoking Status: Current every day smoker Past Alcohol Use History: Rare Past Drug Use History: None Reported General Exam Limitations: no limitations General appearance: alert, in distress Head exam: Present: atraumatic, normocephalic, normal inspection Respiratory exam: Present: normal lung sounds bilaterally. Absent: respiratory distress, wheezes, rales, rhonchi, stridor Cardiovascular Exam: Present: regular rate, normal rhythm, normal heart sounds. Absent: systolic murmur, diastolic murmur, rubs, gallop, clicks GI/Abdominal exam: Present: soft, normal bowel sounds. Absent: distended, tenderness, guarding, rebound, rigid Neurological exam: Present: alert, oriented X3, CN II-XII intact Psychiatric exam: Present: normal affect, normal mood Skin exam: Present: warm, dry, intact, normal color. Absent: rash Course Vital Signs 09/11/24 09/11/24 09/11/24 10:28 12:36 15:18 Temperature 97.8 F 98.1 F Pulse Rate 70 61 60 Respiratory 20 18 18 Rate Blood Pressure 118/78 115/75 101/64 O2 Sat by Pulse 95 94 L 98 Oximetry Medical Decision Making - Medical Decision Making This is a 74 year old male who presents to the emergency department for urinary retention. Was pt. sent in by a medical professional or institution? @ -No Did you speak to anyone other than the patient for history? @ -No Did you review nursing and triage notes? @ -Yes, and I agree, it is accurate with regards to the patient's symptoms. Were old charts reviewed? @ -No Differential Diagnosis? @ -Blood clot, BPH, mass, neurological issue, this is not meant to be an all- inclusive list. EKG interpreted by me (3pts min.)? @ -Not obtained X-rays interpreted by me (1pt min.)? @ -Not obtained CT interpreted by me (1pt min.)? @ -CT scan of the abdomen and pelvis obtained. My interpretation identifies bladder wall thickening. U/S interpreted by me (1pt. min.)? @ -Not obtained What testing was considered but not performed? (CT, X-rays, U/S, labs)? Why? @ -None What meds were considered but not given? Why? @ -None Did you discuss the management of the patient with other professionals? @ -Yes, Dr. Chaparro, who accepts the patient for admission. Did you reconcile home meds? @ -Yes Was smoking cessation discussed for >3mins.? @ -No Was critical care preformed (if so, how long)? @ -No Were there social determinants of health that impacted care today? How? (Homelessness, low income, unemployed, alcoholism, drug addiction, transportation, low edu. Level, literacy, decrease access to med. care, alf, rehab)? @ -No Was there de-escalation of care discussed even if they declined? (Discuss DNR or withdrawal of care, Hospice)? @ -No What co-morbidities impacted this encounter? (DM, HTN, Smoking, COPD, CAD, Cancer, CVA, Hep., AIDS, mental health diagnosis, sleep apnea, morbid obesity)? @ -BPH, cancer Was patient admitted / discharged? @ -Admitted. Lab work demonstrates signs of dehydration and was otherwise unremarkable. Bladder scan performed demonstrating 100-150 mL of urine. Urinalysis consistent with infection. Urine sent for culture. CT scan of the abdomen and pelvis demonstrates bladder wall thickening with fat stranding changes suggestive of cystitis. Bladder scan was repeated demonstrating closer to 300 mL of urine. Patient continued to complain of severe penile pain and would not attempt a Garcia catheter unless he was sedated, as he states that he tenses up too much. He would also prefer to go back to a suprapubic catheter. Given his intractable pain with the UTI, retention, and new diagnosis of prost ate cancer, patient was admitted to medicine. 2 g of Rocephin administered. Consult placed for urology regarding the retention to discuss catheter options. Hem/onc consulted as well regarding new diagnosis of prostate cancer. Case discussed with ED attending Dr. Marley. Undiagnosed new problem with uncertain prognosis? @ -None Drug Therapy requiring intensive monitoring for toxicity (Heparin, Nitro, Insulin, Cardizem)? @ -None Were any procedures done? @ -None Diagnosis/symptom? @ -Urinary retention, UTI, intractable pain Acute, or Chronic, or Acute on Chronic? @ -Acute Uncomplicated (without systemic symptoms) or Complicated (systemic symptoms)? @ -Uncomplicated Side effects of treatment? @ -None Exacerbation, Progression, or Severe Exacerbation] @ -Not applicable Poses a threat to life or bodily function? @ -Yes, patient is unable to function due to pain - Lab Data Result diagrams: 09/11/24 11:12 09/11/24 11:12 Lab Results 09/11/24 09/11/24 09/11/24 Range/Units 11:12 11:12 11:12 WBC 6.7 (3.8-10.6) k/uL RBC 4.63 (4.30-5.90) m/uL Hgb 14.0 (13.0-17.5) gm/dL Hct 42.7 (39.0-53.0) % MCV 92.2 (80.0-100.0) fL MCH 30.3 (25.0-35.0) pg MCHC 32.9 (31.0-37.0) g/dL RDW 13.6 (11.5-15.5) % Plt Count 352 (150-450) k/uL MPV 7.0 Neutrophils % 66 % Lymphocytes % 21 % Monocytes % 5 % Eosinophils % 6 % Basophils % 1 % Neutrophils # 4.4 (1.3-7.7) k/uL Lymphocytes # 1.4 (1.0-4.8) k/uL Monocytes # 0.3 (0-1.0) k/uL Eosinophils # 0.4 (0-0.7) k/uL Basophils # 0.0 (0-0.2) k/uL Sodium 138 (137-145) mmol/L Potassium 4.7 (3.5-5.1) mmol/L Chloride 108 H (98-107) mmol/L Carbon Dioxide 25 (22-30) mmol/L Anion Gap 5 mmol/L BUN 24 H (9-20) mg/dL Creatinine 1.54 H (0.66-1.25) mg/dL Est GFR (CKD-EPI)AfAm 51 (>60 ml/min/1.73 sqM) Est GFR (CKD-EPI)NonAf 44 (>60 ml/min/1.73 sqM) Glucose 97 (74-99) mg/dL Plasma Lactic Acid Pierce (0.7-2.0) mmol/L Calcium 9.1 (8.4-10.2) mg/dL Total Bilirubin 0.3 (0.2-1.3) mg/dL AST 22 (17-59) U/L ALT 24 (4-49) U/L Alkaline Phosphatase 96 (38-126) U/L Total Protein 6.1 L (6.3-8.2) g/dL Albumin 3.6 (3.5-5.0) g/dL Urine Color Yellow Urine Appearance Cloudy (Clear) Urine pH 6.5 (5.0-8.0) Ur Specific [place] 1.017 (1.001-1.035) Urine Protein 1+ H (Negative) Urine Glucose (UA) Negative (Negative) Urine Ketones Negative (Negative) Urine Blood Large H (Negative) Urine Nitrite Positive (Negative) Urine Bilirubin Negative (Negative) Urine Urobilinogen <2.0 (<2.0) mg/dL Ur Leukocyte Esterase Large H (Negative) Urine RBC 81 H (0-5) /hpf Urine WBC >182 H (0-5) /hpf Ur Squamous Epith Cells <1 (0-4) /hpf Urine Bacteria Rare H (None) /hpf Urine Mucus Rare H (None) /hpf 09/11/24 Range/Units 11:12 WBC (3.8-10.6) k/uL RBC (4.30-5.90) m/uL Hgb (13.0-17.5) gm/dL Hct (39.0-53.0) % MCV (80.0-100.0) fL MCH (25.0-35.0) pg MCHC (31.0-37.0) g/dL RDW (11.5-15.5) % Plt Count (150-450) k/uL MPV Neutrophils % % Lymphocytes % % Monocytes % % Eosinophils % % Basophils % % Neutrophils # (1.3-7.7) k/uL Lymphocytes # (1.0-4.8) k/uL Monocytes # (0-1.0) k/uL Eosinophils # (0-0.7) k/uL Basophils # (0-0.2) k/uL Sodium (137-145) mmol/L Potassium (3.5-5.1) mmol/L Chloride (98-107) mmol/L Carbon Dioxide (22-30) mmol/L Anion Gap mmol/L BUN (9-20) mg/dL Creatinine (0.66-1.25) mg/dL Est GFR (CKD-EPI)AfAm (>60 ml/min/1.73 sqM) Est GFR (CKD-EPI)NonAf (>60 ml/min/1.73 sqM) Glucose (74-99) mg/dL Plasma Lactic Acid [place] 0.8 (0.7-2.0) mmol/L Calcium (8.4-10.2) mg/dL Total Bilirubin (0.2-1.3) mg/dL AST (17-59) U/L ALT (4-49) U/L Alkaline Phosphatase (38-126) U/L Total Protein (6.3-8.2) g/dL Albumin (3.5-5.0) g/dL Urine Color Urine Appearance (Clear) Urine pH (5.0-8.0) Ur Specific [place] (1.001-1.035) Urine Protein (Negative) Urine Glucose (UA) (Negative) Urine Ketones (Negative) Urine Blood (Negative) Urine Nitrite (Negative) Urine Bilirubin (Negative) Urine Urobilinogen (<2.0) mg/dL Ur Leukocyte Esterase (Negative) Urine RBC (0-5) /hpf Urine WBC (0-5) /hpf Ur Squamous Epith Cells (0-4) /hpf Urine Bacteria (None) /hpf Urine Mucus (None) /hpf - Radiology Data Radiology results: report reviewed, image reviewed Disposition Clinical Impression: Urinary retention, UTI (urinary tract infection), Intractable pain Disposition: ADMITTED IP TO THIS HOSP
[2024-09-11] MEDS: HYDROmorphone 1 MG/ML 1 ML SYRINGE IVP STA ×2 (11:18→12:51)
[2024-09-11 11:31] LABS: Basophils % (A) 1 %; Eosinophils # (A) 0.4 k/uL (0-0.7); Eosinophils % (A) 6 %; HCT 42.7 % (39.0-53.0); Lymphocytes # (A) 1.4 k/uL (1.0-4.8); Lymphocytes % (A) 21 %; MCH 30.3 pg (25.0-35.0); MCHC 32.9 g/dL (31.0-37.0); MCV 92.2 fL (80.0-100.0); Monocytes # (A) 0.3 k/uL (0-1.0); Monocytes % (A) 5 %; Neutrophils # (A) 4.4 k/uL (1.3-7.7); Neutrophils % (A) 66 %; Platelet Count 352 k/uL (150-450); RBC 4.63 m/uL (4.30-5.90); RDW 13.6 % (11.5-15.5); WBC 6.7 k/uL (3.8-10.6)
[2024-09-11 11:42] LABS: ALT 24 U/L (4-49); AST 22 U/L (17-59); African American GFR (CKD) 51 (>60 ml/min/1.73 sqM); Albumin 3.6 g/dL (3.5-5.0); Alkaline Phosphatase 96 U/L (38-126); Anion Gap 5 mmol/L; Blood Urea Nitrogen 24 mg/dL (9-20); Calcium 9.1 mg/dL (8.4-10.2); Carbon Dioxide 25 mmol/L (22-30); Chloride 108 mmol/L (98-107); Glucose 97 mg/dL (74-99); Non-African American GFR(CKD) 44 (>60 ml/min/1.73 sqM); Potassium 4.7 mmol/L (3.5-5.1); Sodium 138 mmol/L (137-145); Total Bilirubin 0.3 mg/dL (0.2-1.3); Total Protein 6.1 g/dL (6.3-8.2)
[2024-09-11 11:43] LABS: Appearance,Urine Cloudy (Clear); Bacteria,Urine Rare /hpf; Bilirubin,Urine Negative (Negative); Blood,Urine Large (Negative); Color,Urine Yellow; Glucose,Urine (UA) Negative (Negative); Ketones,Urine Negative (Negative); Leukocyte Esterase,Urine Large (Negative); Mucus,Urine Rare /hpf; Nitrite,Urine Positive (Negative); PH, Urine 6.5 (5.0-8.0); Protein,Urine 1+ (Negative); RBC,Urine 81 /hpf (0-5); Specific Gravity,Urine 1.017 (1.001-1.035); Squamous Epithelial Cell,Urine <1 /hpf (0-4); Urobilinogen,Urine <2.0 mg/dL (<2.0); WBC,Urine >182 /hpf (0-5)
[2024-09-11] MEDS: cefTRIAXone IN SWFI 1,000 MG/10 ML SYRINGE IVP STA (12:38)
[2024-09-11] MEDS: PHENAZOPYRIDINE 100 MG TAB PO STA (12:38)
--- NOTE | 2024-09-11 13:18 | CT ---
EXAMINATION TYPE: CT abdomen pelvis wo con DATE OF EXAM: 09/11/2024 12:58 PM COMPARISON: CT abdomen pelvis most recent from total 24 08/05/2024 CLINICAL INDICATION: Male, 74 years old with history of Abdominal pain, urinary retention, cancer dx; urine retention TECHNIQUE: Axial CT abdomen pelvis wo con;Sagittal and coronal reformats were created on a separate workstation. Contrast used: mL of , (none if empty) Oral contrast used: without Oral Contrast (none if empty) CT DLP: 677.7 mGycm, Automated exposure control for dose reduction was used. FINDINGS: LOWER CHEST: Unremarkable ABDOMEN LIVER: Scattered simple probable cyst. GALLBLADDER AND BILE DUCTS: Unremarkable. PANCREAS: Unremarkable. SPLEEN: Unremarkable. ADRENAL GLANDS: Unremarkable. KIDNEYS AND URETERS: No evidence of hydronephrosis or renal calculus. The ureters are unremarkable. PELVIS BLADDER: Hazy urinary wall borders with fat stranding and bladder diverticula and wall thickening up to 11 mm on the right which is somewhat slightly eccentric series 202 image 63. Suprapubic Garcia cath eter no longer visualized. REPRODUCTIVE: Unremarkable. ABDOMEN & PELVIS STOMACH AND BOWEL: No evidence of bowel obstruction. PERITONEUM/RETROPERITONEUM: No evidence of pneumoperitoneum or free fluid. VASCULATURE: No evidence of aortic aneurysm. MUSCULOSKELETAL: No acute osseous abnormalities. Moderate disc degeneration changes are present throu ghout the thoracolumbar spine. LYMPH NODES: No gross evidence for lymphadenopathy. SOFT TISSUE/ABDOMINAL WALL: Unremarkable IMPRESSION: Bladder wall thickening with fat stranding changes. Ta are may be somewhat irregular on the right side. Findings suggest cystitis. Underlying mass should be excluded with CT urogram or direct visuali zation. [facility], , 09/11/2024 1:16 PM
[2024-09-11] MEDS: LIDOCAINE 2% URO-JET JELLY 5 ML KIT URETHRAL ONE ×2 (14:14→18:03)
[2024-09-11] MEDS ORDERED: ACETAMINOPHEN TAB 325 MG TAB PO PRN (14:33)
[2024-09-11] MEDS ORDERED: NALOXONE 0.4 MG/ML 1 ML VIAL IV PRN (14:33)
[2024-09-11] MEDS ORDERED: ONDANSETRON 4 MG/2 ML VIAL IVP PRN (14:33)
[2024-09-11] MEDS ORDERED: ALPRAZolam 0.5 MG TAB PO PRN (15:14)
[2024-09-11] MEDS: HYDROmorphone 1 MG/ML 1 ML SYRINGE IVP PRN (16:43)
[2024-09-11] MEDS: diazePAM 5 MG TAB PO STA (17:39)
[2024-09-11] MEDS: traZODone HCL 100 MG TAB PO SCH (20:36)
[2024-09-11] MEDS: TAMSULOSIN 0.4 MG CAP.ER.24H PO SCH (20:36)
[2024-09-11] MEDS: SENNOSIDES 8.6 MG TAB PO SCH (20:36)
[2024-09-11] MEDS: ATORVASTATIN 10 MG TAB PO SCH (20:36)
[2024-09-11] MEDS: FLUoxetine HCL 20 MG CAP PO SCH (20:36)
[2024-09-11] MEDS: buPROPion 75 MG TAB PO SCH (21:11)
[2024-09-12] MEDS: MELOXICAM 7.5 MG TAB PO SCH (08:30)
[2024-09-12] MEDS: LACTOBACILLUS ACIDOPHILUS/PECT 1 EACH CAPSULE PO SCH (08:30)
[2024-09-12] MEDS: PANTOPRAZOLE 40 MG/10 ML VIAL IV SCH (08:33)
[2024-09-12] MEDS: polyethylene glycoL 3350 17 GM POWD.PACK PO SCH (08:33)
[2024-09-12] MEDS: FLUoxetine HCL 20 MG CAP PO SCH (08:33)
[2024-09-12] MEDS ORDERED: LIDOCAINE 2% URO-JET JELLY 5 ML KIT URETHRAL PRN (09:05)
[2024-09-12] MEDS: LORazepam 2 MG/ML INJ IV STA (09:58)
--- NOTE | 2024-09-12 10:32 | P.GSCN ---
History of Present Illness Consult date: 09/12/24 Reason for Consult: Urinary retention History of present illness: This is a 74-year-old male with recently diagnosed invasive urothelial carcinoma currently currently being worked up by Dr. levy. History of recurrent urinary retention previously managed with a Garcia and a suprapubic tube, both catheters were recently removed and he had was able to initially void, but indicated over the last couple of days he is only been able to dribble small amount, and he has to at this point Valsalva in order to dribble out urine. Is complaining of abdominal pressure with dysuria and intermittent gross hematuria. Denies any fevers or chills. His postvoid residual have been ranging anywhere from 100 to over [address] a Garcia catheter by the nursing staff was unsuccessful secondary to resistance at the urethra. Of note patient does have poor tolerance of Garcia catheter insertions. Urinalysis on presentation was concerning for UTI. He did have CT abdomen pelvis on presentation which showed evidence of bladder wall thickening. Review of Systems - Constitutional Denies fever, Denies weight loss - Cardiovascular Denies chest pain, Denies shortness of breath - Respiratory Denies cough, Denies 7 - Gastrointestinal Reports as per HPI - Genitourinary Reports dysuria, Reports urinary retention Past Medical History Past Medical History: Cancer, Prostate Disorder Additional Past Medical History / Comment(s): superpubic catheter 03/2024, prostate (diagnosed 08/2024) and possibly bladder cancer History of Any Multi-Drug Resistant Organisms: None Reported Past Surgical History: Prostate Surgery Additional Past Surgical History / Comment(s): TURP, bladder diverticula repaired. Past Anesthesia/Blood Transfusion Reactions: No Reported Reaction Smoking Status: Current every day smoker Medications and Allergies Home Medications Medication Instructions Recorded Confirmed Type FLUoxetine HCL [PROzac] 20 mg PO HS 08/05/24 09/11/24 History FLUoxetine HCL [PROzac] 40 mg PO DAILY 08/05/24 09/11/24 History L.acidoph,Paracasei, B.lactis 1 cap PO DAILY 08/05/24 09/11/24 History [Probiotic] Lovastatin [Mevacor] 40 mg PO HS 08/05/24 09/11/24 History Meloxicam [Mobic] 7.5 mg PO DAILY 08/05/24 09/11/24 History Tamsulosin [Flomax] 0.4 mg PO BID 08/05/24 09/11/24 History buPROPion [Wellbutrin] 75 mg PO BID 08/05/24 09/11/24 History traZODone HCL [Desyrel] 100 mg PO HS 08/05/24 09/11/24 History Lactulose [Cephulac] 20 gm PO TID PRN #360 ml 08/11/24 09/11/24 Rx Sennosides [Senokot] 8.6 mg PO BID #60 tab 08/11/24 09/11/24 Rx polyethylene glycoL 3350 [Miralax] 17 gm PO DAILY #30 packet 08/11/24 09/11/24 Rx ALPRAZolam [Xanax] 0.5 mg PO Q8H PRN 09/11/24 09/11/24 History HYDROcodone/APAP 5-325MG [[place] 1 tab PO Q6H PRN 09/11/24 09/11/24 History 5-325] Ketorolac [Toradol] 10 mg PO Q6HR PRN 09/11/24 09/11/24 History Allergies Allergy/AdvReac Type Severity Reaction Status Date / Time No Known Allergies Allergy Verified 09/11/24 14:56 Surgical - Exam Vital Signs Temp Pulse Resp BP Pulse Ox 97.8 F 70 20 118/78 95 09/11/24 10:28 09/11/24 10:28 09/11/24 10:28 09/11/24 10:28 09/11/24 10:28 - General no distress, moderate pain - Eyes normal ocular movement, no pale - ENT normal nares, normal mucosa - Respiratory normal expansion, normal respiratory effort - Abdomen Abdomen: soft, non tender, no distended - Psychiatric oriented to time, oriented to person, oriented to place Results - Labs 09/11/24 11:12 09/11/24 11:12 Abnormal Lab Results - Last 24 Hours (Table) 09/11/24 09/11/24 Range/Units 11:12 11:12 Chloride 108 H (98-107) mmol/L BUN 24 H (9-20) mg/dL Creatinine 1.54 H (0.66-1.25) mg/dL Total Protein 6.1 L (6.3-8.2) g/dL Urine Protein 1+ H (Negative) Urine Blood Large H (Negative) Ur Leukocyte Esterase Large H (Negative) Urine RBC 81 H (0-5) /hpf Urine WBC >182 H (0-5) /hpf Urine Bacteria Rare H (None) /hpf Urine Mucus Rare H (None) /hpf Diabetes panel 09/11/24 Range/Units 11:12 Sodium 138 (137-145) mmol/L Potassium 4.7 (3.5-5.1) mmol/L Chloride 108 H (98-107) mmol/L Carbon Dioxide 25 (22-30) mmol/L BUN 24 H (9-20) mg/dL Creatinine 1.54 H (0.66-1.25) mg/dL Glucose 97 (74-99) mg/dL Calcium 9.1 (8.4-10.2) mg/dL AST 22 (17-59) U/L ALT 24 (4-49) U/L Alkaline Phosphatase 96 (38-126) U/L Total Protein 6.1 L (6.3-8.2) g/dL Albumin 3.6 (3.5-5.0) g/dL Calcium panel 09/11/24 Range/Units 11:12 Calcium 9.1 (8.4-10.2) mg/dL Albumin 3.6 (3.5-5.0) g/dL Pituitary panel 09/11/24 Range/Units 11:12 Sodium 138 (137-145) mmol/L Potassium 4.7 (3.5-5.1) mmol/L Chloride 108 H (98-107) mmol/L Carbon Dioxide 25 (22-30) mmol/L BUN 24 H (9-20) mg/dL Creatinine 1.54 H (0.66-1.25) mg/dL Glucose 97 (74-99) mg/dL Calcium 9.1 (8.4-10.2) mg/dL Adrenal panel 09/11/24 Range/Units 11:12 Sodium 138 (137-145) mmol/L Potassium 4.7 (3.5-5.1) mmol/L Chloride 108 H (98-107) mmol/L Carbon Dioxide 25 (22-30) mmol/L BUN 24 H (9-20) mg/dL Creatinine 1.54 H (0.66-1.25) mg/dL Glucose 97 (74-99) mg/dL Calcium 9.1 (8.4-10.2) mg/dL Total Bilirubin 0.3 (0.2-1.3) mg/dL AST 22 (17-59) U/L ALT 24 (4-49) U/L Alkaline Phosphatase 96 (38-126) U/L Total Protein 6.1 L (6.3-8.2) g/dL Albumin 3.6 (3.5-5.0) g/dL Assessment and Plan Assessment: 74-year-old male history of invasive urothelial carcinoma, recurrent urinary retention. Is having significant difficulty voiding. Attempted place Garcia catheter by nursing staff was unsuccessful. I was able to place a 12 [place] silicone catheter. Recommend keeping the hospital for another 24 hours for IV antibiotics. Medical oncology has been consulted for his invasive urothelial carcinoma. Will await their input. Advised him to follow-up with Dr. Levy as an outpatient for continued evaluation of his bladder cancer. Patient was interested in suprapubic tube I did discuss with him given the bladder cancer diagnosis this is contraindicated at this time given the risk of bladder cancer seeding along the tract -Keep Garcia catheter in place can follow-up with Dr. Levy outpatient
--- NOTE | 2024-09-12 10:33 | P.PCN ---
Date of Procedure: 09/12/24 Preoperative Diagnosis: Urinary retention Postoperative Diagnosis: Same Description of Procedure: Patient penis was prepped with Betadine. Uro-Jet was injected per urethra. Next I was able to advance a 12 [place] silicone catheter into the bladder, of note there was some resistance met at the external sphincter secondary to patient nonrelaxation. But I was able to navigate the catheter past the sphincter into the bladder with the return of clear urine.
[2024-09-12] MEDS: HYDROcodone/APAP 5-325MG 1 EACH TAB PO PRN (12:20)
--- NOTE | 2024-09-12 20:52 | P.CONS ---
History of Present Illness - Reason for Consult Consult date: 09/12/24 Invasive urothelial cancer - History of Present Illness The patient is a 74-year-old white male, with a recent diagnosis of muscle invasive urothelial carcinoma. The patient has a longstanding history of atonic bladder, causing urinary retention, previously managed with an indwelling Garcia catheter. The patient subsequently developed problems with penile pain, through the fall 2023. His catheter was therefore changed to a suprapubic one. The patient had multiple cystoscopies in the last quarter of 2023, showing a bulbar stricture. He was admitted in 08/17, with imaging showing heterogenous appearance of the bladder wall. The patient had a repeat cystoscopy by Dr. Galindo on 08/31/2024, which confirmed malignancy invading into the prostate with biopsy confirming invasive urothelial cancer The patient had transurethral resection during the above procedure, and had a suprapubic catheter removed. He was able to subsequently void on his own for some days, but then developed difficulty with retention again, leading to admission this time. CT abdomen pelvis again showed thickening of the bladder wall, without any evidence of obvious metastatic disease. The patient was subsequently able to have catheter placed by urology. He is currently draining fairly clear urine. He denies any prior history of malignancy. he is a current smoker. Review of Systems Constitutional: Reports weight loss Eyes: denies blurred vision, denies pain Ears: deny: decreased hearing, ear discharge, earache, tinnitus Ears, nose, mouth and throat: Denies headache, Denies sore throat Cardiovascular: Denies chest pain, Denies shortness of breath Respiratory: Denies cough Gastrointestinal: Denies abdominal pain, Denies diarrhea, Denies nausea, Denies vomiting Genitourinary: Reports as per HPI, Reports hematuria, Reports urinary retention Musculoskeletal: Denies myalgias Integumentary: Denies pruritus, Denies rash Neurological: Denies numbness, Denies weakness Psychiatric: Denies anxiety, Denies depression Endocrine: Denies fatigue, Denies weight change Hematologic/Lymphatic: Reports as per HPI Past Medical History Past Medical History: Cancer, Prostate Disorder Additional Past Medical History / Comment(s): superpubic catheter 03/2024, prostate (diagnosed 08/2024) and possibly bladder cancer History of Any Multi-Drug Resistant Organisms: None Reported Past Surgical History: Prostate Surgery Additional Past Surgical History / Comment(s): TURP, bladder diverticula repaired. Past Anesthesia/Blood Transfusion Reactions: No Reported Reaction Smoking Status: Current every day smoker Medications and Allergies Home Medications Medication Instructions Recorded Confirmed Type FLUoxetine HCL [PROzac] 20 mg PO HS 08/05/24 09/11/24 History FLUoxetine HCL [PROzac] 40 mg PO DAILY 08/05/24 09/11/24 History L.acidoph,Paracasei, B.lactis 1 cap PO DAILY 08/05/24 09/11/24 History [Probiotic] Lovastatin [Mevacor] 40 mg PO HS 08/05/24 09/11/24 History Meloxicam [Mobic] 7.5 mg PO DAILY 08/05/24 09/11/24 History Tamsulosin [Flomax] 0.4 mg PO BID 08/05/24 09/11/24 History buPROPion [Wellbutrin] 75 mg PO BID 08/05/24 09/11/24 History traZODone HCL [Desyrel] 100 mg PO HS 08/05/24 09/11/24 History Lactulose [Cephulac] 20 gm PO TID PRN #360 ml 08/11/24 09/11/24 Rx Sennosides [Senokot] 8.6 mg PO BID #60 tab 08/11/24 09/11/24 Rx polyethylene glycoL 3350 [Miralax] 17 gm PO DAILY #30 packet 08/11/24 09/11/24 Rx ALPRAZolam [Xanax] 0.5 mg PO Q8H PRN 09/11/24 09/11/24 History HYDROcodone/APAP 5-325MG [[place] 1 tab PO Q6H PRN 09/11/24 09/11/24 History 5-325] Ketorolac [Toradol] 10 mg PO Q6HR PRN 09/11/24 09/11/24 History Allergies Allergy/AdvReac Type Severity Reaction Status Date / Time No Known Allergies Allergy Verified 09/11/24 14:56 Physical Exam Vitals: Vital Signs Temp Pulse Pulse Resp BP BP Pulse Ox 09/12/24 07:44 98.5 F 51 L 16 106/69 93 L 09/12/24 02:00 98.6 F 58 L 16 109/67 93 L 09/11/24 20:00 98.6 F 65 16 107/67 92 L 09/11/24 19:40 65 16 09/11/24 15:39 98.1 F 49 L 16 118/73 93 L 09/11/24 15:18 98.1 F 60 18 101/64 98 Intake and Output 09/11/24 09/12/24 09/12/24 22:59 06:59 14:59 Output Total 439 682 Balance -439 -682 Output: Urine 350 650 Post Void Residual 89 32 Other: Voiding Method Toilet Indwelling Catheter Urinal # Voids 4 Weight 98.43 kg - Constitutional General appearance: no acute distress - EENT Eyes: EOMI, PERRLA ENT: hearing grossly normal, normal oropharynx - Neck Neck: no lymphadenopathy Thyroid: bilateral: normal size - Respiratory Respiratory: bilateral: CTA - Cardiovascular Rhythm: regular Heart sounds: normal: S1, S2 - Gastrointestinal General gastrointestinal: normal bowel sounds, soft - Integumentary Integumentary: normal - Neurologic Neurologic: CNII-XII intact - Musculoskeletal Musculoskeletal: strength equal bilaterally - Psychiatric Psychiatric: A&O x's 3, appropriate affect Results CBC & Chem 7: 09/11/24 11:12 09/11/24 11:12 Comments: Pathology report reviewed CT scan - abdomen: report reviewed CT scan - pelvis: report reviewed Assessment and Plan (1) Urothelial carcinoma of bladder with invasion of muscle Narrative/Plan: Recent diagnosis, with diagnostic circumstances as described. The patient has been having complications related to urinary retention due to the same. CT of the abdomen and pelvis did not show any obvious metastatic disease. -The pathology and applications were discussed in detail with him. He was advised that in the situation I recommend outpatient PET scan for staging. Assuming the PET scan was negative, he will be candidate for treatment with curative intent which is usually neoadjuvant systemic therapy, followed by surg maximilian. The patient at this time stating that he did not want to have any chemotherapy. After additional discussion, he was agreeable to having the scan and potentially reconsider systemic treatment options as appropriate. We also discussed that if persistent shortness of 30 metastatic disease, then the malignancy would have to be treated with a palliative intent -Schedule PET scan as outpatient, with subsequent office follow-up Current Visit: Yes Status: Acute Code(s): C67.9 - MALIGNANT NEOPLASM OF BLADDER, UNSPECIFIED SNOMED Code(s): 522938973 (2) Urinary retention Narrative/Plan: The patient was able to have a Garcia placed, which is draining clear urine currently, after some gross hematuria which appeared to be mostly old blood according to the patient. Defer to urology for ongoing management Current Visit: Yes Status: Acute Code(s): R33.9 - RETENTION OF URINE, UNSPECIFIED SNOMED Code(s): 635566892
--- NOTE | 2024-09-12 21:35 | P.HPIM ---
History of Present Illness This is a pleasant 74 years old male presents because of lower abdominal pain and urinary symptoms and inability to void of 1 to 2 days duration Patient was recently diagnosed with invasive urothelial carcinoma, patient's urologist is Dr. Kat. He denies chest pain or dyspnea. No headache dizziness weakness or numbness He had diarrhea 2 days ago but stopped He smokes less than a pack per day and he was counseled to quit he agrees but he does not want nicotine patch. He drinks occasionally socially and no illicit drugs He is hemodynamically stable and afebrile CBC and LFT were unremarkable Creatinine elevated at baseline of 1.5 and baseline 1.4-1.6. Rest of BMP is unremarkable Urine analysis is suspicious for UTI Lactic acid is negative at 0.8 CT of the abdomen and pelvis without contrast showing urinary bladder wall thickening suspicious for cystitis and tumor cannot be excluded Patient was started on ceftriaxone Several attempts to place Garcia catheter was felt by the staff. Urology team were consulted who were able to place 12 Chinese catheter Review of Systems Review of systems CONSTITUTIONAL: No fever, no malaise, no fatigue. HEENT: No recent visual problems or hearing problems. Denied any sore throat. CARDIOVASCULAR: No orthopnea, PND, no palpitations, no syncope. PULMONARY: No shortness of breath, no cough, no hemoptysis. GASTROINTESTINAL: No diarrhea, no nausea, no vomiting, no abdominal pain. Normoactive bowel sounds. NEUROLOGICAL: No headaches, no weakness, no numbness. HEMATOLOGICAL: Denies any bleeding or petechiae. GENITOURINARY: Denies any burning micturition, frequency, or urgency. MUSCULOSKELETAL/RHEUMATOLOGICAL: Denies any joint pain, swelling, or any muscle pain. ENDOCRINE: Denies any polyuria or polydipsia. Past Medical History Past Medical History: Cancer, Prostate Disorder Additional Past Medical History / Comment(s): superpubic catheter 03/2024, prostate (diagnosed 08/2024) and possibly bladder cancer History of Any Multi-Drug Resistant Organisms: None Reported Past Surgical History: Prostate Surgery Additional Past Surgical History / Comment(s): TURP, bladder diverticula repaired. Past Anesthesia/Blood Transfusion Reactions: No Reported Reaction Smoking Status: Current every day smoker Medications and Allergies Home Medications Medication Instructions Recorded Confirmed Type FLUoxetine HCL [PROzac] 20 mg PO HS 08/05/24 09/11/24 History FLUoxetine HCL [PROzac] 40 mg PO DAILY 08/05/24 09/11/24 History L.acidoph,Paracasei, B.lactis 1 cap PO DAILY 08/05/24 09/11/24 History [Probiotic] Lovastatin [Mevacor] 40 mg PO HS 08/05/24 09/11/24 History Meloxicam [Mobic] 7.5 mg PO DAILY 08/05/24 09/11/24 History Tamsulosin [Flomax] 0.4 mg PO BID 08/05/24 09/11/24 History buPROPion [Wellbutrin] 75 mg PO BID 08/05/24 09/11/24 History traZODone HCL [Desyrel] 100 mg PO HS 08/05/24 09/11/24 History Lactulose [Cephulac] 20 gm PO TID PRN #360 ml 08/11/24 09/11/24 Rx Sennosides [Senokot] 8.6 mg PO BID #60 tab 08/11/24 09/11/24 Rx polyethylene glycoL 3350 [Miralax] 17 gm PO DAILY #30 packet 08/11/24 09/11/24 Rx ALPRAZolam [Xanax] 0.5 mg PO Q8H PRN 09/11/24 09/11/24 History HYDROcodone/APAP 5-325MG [[place] 1 tab PO Q6H PRN 09/11/24 09/11/24 History 5-325] Ketorolac [Toradol] 10 mg PO Q6HR PRN 09/11/24 09/11/24 History Allergies Allergy/AdvReac Type Severity Reaction Status Date / Time No Known Allergies Allergy Verified 09/11/24 14:56 Physical Exam Vitals: Vital Signs Temp Pulse Pulse Resp BP BP Pulse Ox 09/12/24 07:44 98.5 F 51 L 16 106/69 93 L 09/12/24 02:00 98.6 F 58 L 16 109/67 93 L 09/11/24 20:00 98.6 F 65 16 107/67 92 L 09/11/24 19:40 65 16 09/11/24 15:39 98.1 F 49 L 16 118/73 93 L 09/11/24 15:18 98.1 F 60 18 101/64 98 09/11/24 12:36 61 18 115/75 94 L 09/11/24 10:28 97.8 F 70 20 118/78 95 Intake and Output 09/11/24 09/12/24 09/12/24 22:59 06:59 14:59 Output Total 439 682 Balance -439 -682 Output: Urine 350 650 Post Void Residual 89 32 Other: Voiding Method Toilet Urinal # Voids 4 Weight 98.43 kg GENERAL: The patient is alert and oriented x3, not in any acute distress. Well developed, well nourished. HEENT: Pupils are round and equally reacting to light. EOMI. No scleral icterus. No conjunctival pallor. Normocephalic, atraumatic. No pharyngeal erythema. No thyromegaly. CARDIOVASCULAR: S1 and S2 present. No murmurs, rubs, or gallops. PULMONARY: Chest is clear to auscultation, no wheezing , no crackles. ABDOMEN: Soft, nontender, nondistended, normoactive bowel sounds. No palpable organomegaly. MUSCULOSKELETAL: No joint swelling or deformity. EXTREMITIES: No cyanosis, clubbing, or pedal edema. NEUROLOGICAL: Gross neurological examination did not reveal any focal deficits. SKIN: No rashes. no petechiae. Results CBC & Chem 7: 09/11/24 11:12 09/11/24 11:12 Labs: Abnormal Lab Results - Last 24 Hours (Table) 09/11/24 09/11/24 Range/Units 11:12 11:12 Chloride 108 H (98-107) mmol/L BUN 24 H (9-20) mg/dL Creatinine 1.54 H (0.66-1.25) mg/dL Total Protein 6.1 L (6.3-8.2) g/dL Urine Protein 1+ H (Negative) Urine Blood Large H (Negative) Ur Leukocyte Esterase Large H (Negative) Urine RBC 81 H (0-5) /hpf Urine WBC >182 H (0-5) /hpf Urine Bacteria Rare H (None) /hpf Urine Mucus Rare H (None) /hpf Thrombosis Risk Factor Assmnt - Choose All That Apply Any of the Below Risk Factors Present?: Yes Other Risk Factors: Yes Each Risk Factor Represents 2 Points: Age 61-74 years, Malignancy Thrombosis Risk Factor Assessment Total Risk Factor Score: 4 Thrombosis Risk Factor Assessment Level: Moderate Risk Assessment and Plan Assessment: Acute urinary tract infection with urinary bladder wall thickening, need to rule out neoplasm Acute urinary retention status post Garcia catheter Chronic kidney disease stage III Nicotine dependence Plan: Continue with ceftriaxone Status post Garcia catheter Follow-up urine culture Urology team consult Follow-up with Dr. Kat upon discharge Hematology/oncology team consult Continue with gentle hydration Patient counseled to quit smoking Labs and medication were reviewed.. Continue same treatment. Continue with symptomatic treatment. Resume home medication. Monitor labs and vitals. DVT and GI prophylaxis. Further recommendations as per clinical course of the patient DVT prophylaxis: Subcutaneous heparin GI Prophylaxis: Pepcid PT/OT: Pending Prognosis is guarded
[2024-09-13] MEDS: HYDROmorphone 0.5 MG/0.5 ML SYRINGE IVP PRN (08:43)
[2024-09-13 11:16] VITALS: BMI 25.7
[2024-09-13 15:07] LABS: African American GFR (CKD) 47 (>60 ml/min/1.73 sqM); Anion Gap 6 mmol/L; Blood Urea Nitrogen 23 mg/dL (9-20); Carbon Dioxide 27 mmol/L (22-30); Chloride 103 mmol/L (98-107); Glucose 108 mg/dL (74-99); Non-African American GFR(CKD) 41 (>60 ml/min/1.73 sqM); Potassium 4.2 mmol/L (3.5-5.1); Sodium 136 mmol/L (137-145)
--- NOTE | 2024-09-13 19:46 | P.PN ---
Subjective This is a pleasant 74 years old male presents because of lower abdominal pain and urinary symptoms and inability to void of 1 to 2 days duration Patient was recently diagnosed with invasive urothelial carcinoma, patient's urologist is Dr. Kat. He denies chest pain or dyspnea. No headache dizziness weakness or numbness He had diarrhea 2 days ago but stopped He smokes less than a pack per day and he was counseled to quit he agrees but he does not want nicotine patch. He drinks occasionally socially and no illicit drugs He is hemodynamically stable and afebrile CBC and LFT were unremarkable Creatinine elevated at baseline of 1.5 and baseline 1.4-1.6. Rest of BMP is unremarkable Urine analysis is suspicious for UTI Lactic acid is negative at 0.8 CT of the abdomen and pelvis without contrast showing urinary bladder wall thickening suspicious for cystitis and tumor cannot be excluded Patient was started on ceftriaxone Several attempts to place Garcia catheter was felt by the staff. Urology team were consulted who were able to place 12 [place] catheter 09/13 Patient 2 feels improved No specific complaint, no dysuria or suprapubic pain or flank pain or tenderness. Garcia catheter in place and draining yellow urine No other new complaint. at bedside Vitals stable and creatinine stable at 1.6 Remains on ceftriaxone pending urine culture Patient evaluated by oncology team who recommended PET scan as an outpatient and close follow-up. Also urology on the case and patient told me he is going to follow-up with his urologist wants to be discharged Possible discharge in 24 to 48 hours once urine culture is finalized Objective - Vital Signs Vital signs: Vital Signs Temp 97.6 F 09/13/24 13:05 Pulse 61 09/13/24 13:05 Resp 18 09/13/24 13:05 BP 121/77 09/13/24 13:05 Pulse Ox 94 L 09/13/24 13:05 FiO2 Intake & Output 09/12/24 09/13/24 09/13/24 18:59 06:59 18:59 Intake Total 1198 540 Output Total 550 2225 Balance 648 -1685 Weight 98.43 kg Intake: Oral 1198 540 Output: Urine 550 2225 Other: Voiding Method Indwelling Catheter Indwelling Catheter Indwelling Catheter - Exam GENERAL: The patient is alert and oriented x3, not in any acute distress. Well developed, well nourished. HEENT: Pupils are round and equally reacting to light. EOMI. No scleral icterus. No conjunctival pallor. Normocephalic, atraumatic. No pharyngeal erythema. No thyromegaly. CARDIOVASCULAR: S1 and S2 present. No murmurs, rubs, or gallops. PULMONARY: Chest is clear to auscultation, no wheezing , no crackles. -ABDOMEN: Soft, nontender, nondistended, normoactive bowel sounds. No palpable organomegaly. Garcia catheter is in place MUSCULOSKELETAL: No joint swelling or deformity. EXTREMITIES: No cyanosis, clubbing, or pedal edema. NEUROLOGICAL: Gross neurological examination did not reveal any focal deficits. SKIN: No rashes. no petechiae. - Labs CBC & Chem 7: 09/11/24 11:12 09/13/24 14:29 Labs: Microbiology - Last 24 Hours (Table) 09/11/24 11:12 Urine Culture - Preliminary Urine,Voided Assessment and Plan Assessment: Acute urinary tract infection with urinary bladder wall thickening, need to rule out neoplasm Acute urinary retention status post Garcia catheter Chronic kidney disease stage III Nicotine dependence Plan: Continue with ceftriaxone Status post Garcia catheter Follow-up urine culture Urology team consult Follow-up with Dr. levy upon discharge Hematology/oncology team consult. Recommended PET scan as an outpatient patient and are aware and agreeable Continue with gentle hydration Patient counseled to quit smoking Labs and medication were reviewed.. Continue same treatment. Continue with symptomatic treatment. Resume home medication. Monitor labs and vitals. DVT and GI prophylaxis. Further recommendations as per clinical course of the patient DVT prophylaxis: Subcutaneous heparin GI Prophylaxis: Pepcid Prognosis is guarded
[2024-09-14] MEDS: LACTULOSE 20 GM/30 ML CUP PO PRN (06:22)
[2024-09-14] MEDS: ETODOLAC 400 MG TAB PO PRN (09:23)
--- NOTE | 2024-09-14 13:21 | P.PN ---
Subjective This is a pleasant 74 years old male presents because of lower abdominal pain and urinary symptoms and inability to void of 1 to 2 days duration Patient was recently diagnosed with invasive urothelial carcinoma, patient's urologist is Dr. Kat. He denies chest pain or dyspnea. No headache dizziness weakness or numbness He had diarrhea 2 days ago but stopped He smokes less than a pack per day and he was counseled to quit he agrees but he does not want nicotine patch. He drinks occasionally socially and no illicit drugs He is hemodynamically stable and afebrile CBC and LFT were unremarkable Creatinine elevated at baseline of 1.5 and baseline 1.4-1.6. Rest of BMP is unremarkable Urine analysis is suspicious for UTI Lactic acid is negative at 0.8 CT of the abdomen and pelvis without contrast showing urinary bladder wall thickening suspicious for cystitis and tumor cannot be excluded Patient was started on ceftriaxone Several attempts to place Garcia catheter was felt by the staff. Urology team were consulted who were able to place 12 Russian catheter 09/13 Patient 2 feels improved No specific complaint, no dysuria or suprapubic pain or flank pain or tenderness. Garcia catheter in place and draining yellow urine No other new complaint. at bedside Vitals stable and creatinine stable at 1.6 Remains on ceftriaxone pending urine culture Patient evaluated by oncology team who recommended PET scan as an outpatient and close follow-up. Also urology on the case and patient told me he is going to follow-up with his urologist wants to be discharged Possible discharge in 24 to 48 hours once urine culture is finalized 09/14 Patient clinically doing well. His pain is controlled, no chest pain or dyspnea. No other new complaints Garcia catheter in place and draining yellow urine. No suprapubic pain or tenderness or dysuria. No fever or chills. Labs look stable from yesterday. Patient urine culture came back positive for Staph epidermidis. Sensitivities reviewed. Patient consulted with infectious disease team and patient was started on IV daptomycin If he continues to improve we will consider for possible discharge in 24 to 48 hours Objective - Vital Signs Vital signs: Vital Signs Temp 97.7 F 09/14/24 07:02 Pulse 65 09/14/24 07:02 Resp 17 09/14/24 07:02 BP 117/78 09/14/24 07:02 Pulse Ox 93 L 09/14/24 07:02 FiO2 Intake & Output 09/13/24 09/14/24 09/14/24 18:59 06:59 18:59 Intake Total 780 1320 Output Total 600 1025 Balance 180 295 Weight 98.43 kg Intake: Oral 780 1320 Output: Urine 600 1025 Other: Voiding Method Indwelling Catheter Indwelling Catheter Indwelling Catheter - Exam GENERAL: The patient is alert and oriented x3, not in any acute distress. Well developed, well nourished. HEENT: Pupils are round and equally reacting to light. EOMI. No scleral icterus. No conjunctival pallor. Normocephalic, atraumatic. No pharyngeal erythema. No thyromegaly. CARDIOVASCULAR: S1 and S2 present. No murmurs, rubs, or gallops. PULMONARY: Chest is clear to auscultation, no wheezing , no crackles. -ABDOMEN: Soft, nontender, nondistended, normoactive bowel sounds. No palpable organomegaly. Garcia catheter is in place MUSCULOSKELETAL: No joint swelling or deformity. EXTREMITIES: No cyanosis, clubbing, or pedal edema. NEUROLOGICAL: Gross neurological examination did not reveal any focal deficits. SKIN: No rashes. no petechiae. - Labs CBC & Chem 7: 09/11/24 11:12 09/13/24 14:29 Labs: Abnormal Lab Results - Last 24 Hours (Table) 09/13/24 Range/Units 14:29 Sodium 136 L (137-145) mmol/L BUN 23 H (9-20) mg/dL Creatinine 1.66 H (0.66-1.25) mg/dL Glucose 108 H (74-99) mg/dL Microbiology - Last 24 Hours (Table) 09/11/24 11:12 Urine Culture - Final Urine,Voided Staphylococcus epidermidis Assessment and Plan Assessment: Acute urinary tract infection with urinary bladder wall thickening, need to rule out neoplasm. Urine culture is growing Staph epidermidis Acute urinary retention status post Garcia catheter Chronic kidney disease stage III Nicotine dependence Plan: Antibiotics was changed to IV daptomycin Status post Garcia catheter urine culture reviewed Urology team consult Follow-up with Dr. levy upon discharge Hematology/oncology team consult. Recommended PET scan as an outpatient patient and are aware and agreeable Continue with gentle hydration Patient counseled to quit smoking Labs and medication were reviewed.. Continue same treatment. Continue with symptomatic treatment. Resume home medication. Monitor labs and vitals. DVT and GI prophylaxis. Further recommendations as per clinical course of the patient DVT prophylaxis: Subcutaneous heparin GI Prophylaxis: Pepcid Prognosis is guarded
[2024-09-14] MEDS: bisacodyL 10 MG SUPP RECTAL STA (13:42)
--- NOTE | 2024-09-14 14:10 | CDI ---
Documentation Clarification Form Date: 09/14/2024 01:54:26 PM From: Ada Edge RN CCDS Phone: [phone] Admit Date: 09/11/2024 02:46:00 PM Patient Name: Uri Horn Visit Number: [id number] Discharge Date: ATTENTION: The Clinical Documentation Specialists (CDI) and [facility] Coding Staff appreciate your assistance in clarifying documentation. Please respond to the clarification below the line at the bottom and electronically sign. The CDI & [facility] Coding staff will review the response and follow-up if needed. Please note: Queries are made part of the Legal Health Record. If you have any questions, please contact the author of this message via ITS. Doctor: Manny E Sheet UTI is documented . Additional clarification regarding this diagnosis is requested. History/Risk Factors: 74 year old male presents to the ED with lower abdominal pain and urinary symptoms inability to void of one to two days duration. Garcia catheter was removed one week ago. Medical History: Invasive urothelial carcinoma, Prostate disorder and current everyday smoker. Clinical Indicators: Vital Signs, 09/11: B/P 118/78; HR 70, Temp 97.8F Oral, RR 20, SpO2 95% ra WBC, 09/11: 6.7 Urinalysis, 09/11: Urine color yellow, cloudy, PH 6.5, Specific gravity 1.017, Glucose negative, Ketones negative, Blood large, Nitrite positive, Bilirubin Negative, Leukocytosis large Rbc 81, Wbc >182, Squamous epith cells <1 bacteria rare, mucus rare Urine Culture, 09/11: Staphylococcus epidermidis Urology Consult, 09/12: History of recurrent urinary retention previously managed with a Garcia and a suprapubic tube, both catheters were recently removed and he had was able to initially void, but indicated over the last couple of days he is only been able to dribble small amount, and he has to at this point Valsalva in order to dribble out urine. Treatment: 09/11 Flomax po BID; 09/11 Pyridium po x 1 Antibiotics: 09/11 Rocephin IVP x 2; 09/12 09/14 Ceftriaxone IVPB Daily; 09/14 Daptomycin IVPB Q24H Please clarify if there is an additional diagnosis associated with the UTI: [ x ] UTI only [ ] UTI related to Garcia Catheter [ ] Other, please specify [ ] Unable to determine (Template Last Revised: October 2020) MTDD
--- NOTE | 2024-09-14 23:09 | P.CONS ---
History of Present Illness - Reason for Consult Consult date: 09/14/24 Antibiotics for UTI Requesting physician: Manny E Sheet - Chief Complaint Unable to urinate x 1 day on admission - History of Present Illness Patient is a 74-year-old male with a past medical history significant for recurrent urinary tract infection managed with a suprapubic catheter recently did have a cystoscopy with concerning for bladder cancer the patient Garcia catheter was discontinued for voiding trial and apparently the patient was initially doing well and able to urinate however on the day of presentation the hospital that is 3 days ago the patient was unable to urinate for the patient has been brought back to the hospital did have some burning of urine as well denies significant suprapubic or flank pain no nausea no vomiting or diarrhea and denies high-grade fever and no fever have been recorded on presentation to the hospital patient was not tachycardic hypotensive or hypoxic he did have white count 6.7 on admission BUN/creatinine has been mildly elevated urine was positive with large leukocyte esterase more than 1-2 WBC patient has been treated with Rocephin urine culture now finalized with staph epi oxacillin resistant prompting this consultation Review of Systems Positive point and negatives has been mentioned in the HPI, complete review of systems was performed and all other systems are negative Past Medical History Past Medical History: Cancer, Prostate Disorder Additional Past Medical History / Comment(s): superpubic catheter 03/2024, prostate (diagnosed 08/2024) and possibly bladder cancer History of Any Multi-Drug Resistant Organisms: None Reported Past Surgical History: Prostate Surgery Additional Past Surgical History / Comment(s): TURP, bladder diverticula repaired. Past Anesthesia/Blood Transfusion Reactions: No Reported Reaction Smoking Status: Current every day smoker Medications and Allergies Home Medications Medication Instructions Recorded Confirmed Type FLUoxetine HCL [PROzac] 20 mg PO HS 08/05/24 09/11/24 History FLUoxetine HCL [PROzac] 40 mg PO DAILY 08/05/24 09/11/24 History L.acidoph,Paracasei, B.lactis 1 cap PO DAILY 08/05/24 09/11/24 History [Probiotic] Meloxicam [Mobic] 7.5 mg PO DAILY 08/05/24 09/11/24 History Tamsulosin [Flomax] 0.4 mg PO BID 08/05/24 09/11/24 History buPROPion [Wellbutrin] 75 mg PO BID 08/05/24 09/11/24 History traZODone HCL [Desyrel] 100 mg PO HS 08/05/24 09/11/24 History Lactulose [Cephulac] 20 gm PO TID PRN #360 ml 08/11/24 09/11/24 Rx Sennosides [Senokot] 8.6 mg PO BID #60 tab 08/11/24 09/11/24 Rx polyethylene glycoL 3350 [Miralax] 17 gm PO DAILY #30 packet 08/11/24 09/11/24 Rx ALPRAZolam [Xanax] 0.5 mg PO Q8H PRN 09/11/24 09/11/24 History HYDROcodone/APAP 5-325MG [[place] 1 tab PO Q6H PRN 09/11/24 09/11/24 History 5-325] Ketorolac [Toradol] 10 mg PO Q6HR PRN 09/11/24 09/11/24 History Allergies Allergy/AdvReac Type Severity Reaction Status Date / Time No Known Allergies Allergy Verified 09/11/24 14:56 Physical Exam Vitals: Vital Signs Temp Pulse Resp BP Pulse Ox 09/14/24 07:02 97.7 F 65 17 117/78 93 L 09/14/24 02:00 97.7 F 66 12 105/63 92 L 09/13/24 20:00 98.0 F 66 12 115/71 93 L 09/13/24 13:05 97.6 F 61 18 121/77 94 L Intake and Output 09/13/24 09/14/24 09/14/24 22:59 06:59 14:59 Intake Total 1020 1080 Output Total 600 1025 Balance 420 55 Intake: Oral 1020 1080 Output: Urine 600 1025 Other: Voiding Method Indwelling Catheter Indwelling Catheter GENERAL DESCRIPTION: Elderly male lying in bed, no distress. No tachypnea or accessory muscle of respiration use. HEENT: Shows Pallor , no scleral icterus. Oral mucous membrane is dry. No pharyngeal erythema or thrush NECK: Trachea central, no thyromegaly. LUNGS: Unlabored breathing. Clear to auscultation anteriorly. No wheeze or crackle. HEART: S1, S2, regular rate and rhythm. No loud murmur ABDOMEN: Soft, no tenderness , guarding or rigidity, no organomegaly EXTREMITIES: No edema of feet. SKIN: No rash, no masses palpable. NEUROLOGICAL: The patient is awake, alert, oriented x3, mood and affect normal. Results CBC & Chem 7: 09/15/24 04:49 09/15/24 04:49 Labs: Abnormal Lab Results - Last 24 Hours (Table) 09/13/24 Range/Units 14:29 Sodium 136 L (137-145) mmol/L BUN 23 H (9-20) mg/dL Creatinine 1.66 H (0.66-1.25) mg/dL Glucose 108 H (74-99) mg/dL Microbiology - Last 24 Hours (Table) 09/11/24 11:12 Urine Culture - Final Urine,Voided Staphylococcus epidermidis Assessment and Plan (1) UTI (urinary tract infection) Status: Acute Code(s): N39.0 - URINARY TRACT INFECTION, SITE NOT SPECIFIED SNOMED Code(s): 71319456 Plan: 1patient was in the hospital with unable to urinate did have burning some suprapubic discomfort positive UA concerning for symptomatic/complicated UTI in this patient who has been recently diagnosed with a bladder cancer for the patient has been recommended cystectomy now with urine culture positive for staph epi oxacillin resistant and resistant to Bactrim DS 2-discontinue Rocephin 3-we will start the patient on daptomycin as he did have a mild renal insufficiency high risk of nephrotoxicity from vancomycin 4-unfortunately outpatient oral options are limited, with the pathogen resistant to Bactrim DS, the patient is on Wellbutrin that is contra indicating the use of Zyvox, if the kidney function improved by tomorrow testing nitrofurantoin may be an option otherwise may need a short course of daptomycin Question concern answered We will follow on clinical condition and cultures to further adjust medication if needed Thank you for this consultation we will follow the patient along with you Dictation was produced using [employer] dictation software. please excuse any grammatical, word or spelling errors. Time with Patient: Greater than 30
[2024-09-15 01:27] LABS: Amorphous Sediment,Urine Rare /hpf; Appearance,Urine Cloudy (Clear); Bacteria,Urine Occasional /hpf; Bilirubin,Urine 1+ (Negative); Blood,Urine Moderate (Negative); Color,Urine Light Yellow; Glucose,Urine (UA) Negative (Negative); Hyaline Casts,Urine 6 /lpf (0-2); Ketones,Urine Negative (Negative); Leukocyte Esterase,Urine Large (Negative); Mucus,Urine Few /hpf; Nitrite,Urine Negative (Negative); Protein,Urine Trace (Negative); RBC,Urine 83 /hpf (0-5); Specific Gravity,Urine 1.013 (1.001-1.035); Squamous Epithelial Cell,Urine 1 /hpf (0-4); Urobilinogen,Urine <2.0 mg/dL (<2.0); WBC,Urine >182 /hpf (0-5)
[2024-09-15 08:59] LABS: Basophils # (A) 0.04 X 10*3/uL (0.00-0.10); Basophils % (A) 0.6 %; Eosinophils # (A) 0.43 X 10*3/uL (0.04-0.35); HCT 42.9 % (39.6-50.0); HGB 13.6 g/dL (13.0-17.0); Lymphocytes # (A) 1.68 X 10*3/uL (0.90-5.00); Lymphocytes % (A) 23.3 %; MCH 29.9 pg (27.0-32.0); MCHC 31.7 g/dL (32.0-37.0); MCV 94.3 FL (80.0-97.0); Mean Platelet Volume 9.4 FL (9.5-12.2); Monocytes # (A) 0.62 X 10*3/uL (0.20-1.00); Monocytes % (A) 8.6 %; NRBC Per 100 WBC 0 X 10*3/uL (0.00-0.01); Neutrophils # (A) 4.42 X 10*3/uL (1.80-7.70); Neutrophils % (A) 61.2 %; Platelet Count 308 X 10*3/uL (140-440); RBC 4.55 X 10*6/uL (4.40-5.60); RDW 13.6 % (11.5-14.5); WBC 7.21 X 10*3/uL (4.50-10.00)
[2024-09-15 09:07] LABS: ALT 15 U/L (10-49); AST 15 U/L (14-35); Albumin 3.6 g/dL (3.8-4.9); Albumin/Globulin Ratio 1.71 Ratio (1.60-3.17); Alkaline Phosphatase 101 U/L (41-126); BUN/Creat Ratio 13.65 Ratio (12.00-20.00); Blood Urea Nitrogen 23.2 mg/dL (9.0-27.0); Calcium 8.9 mg/dL (8.7-10.3); Carbon Dioxide 24.5 mmol/L (21.6-31.8); Chloride 107 mmol/L (96-109); Globulin 2.1 g/dL (1.6-3.3); Glucose 101 mg/dL (70-110); Potassium 4.8 mmol/L (3.5-5.5); Sodium 140 mmol/L (135-145); Total Bilirubin 0.2 mg/dL (0.3-1.2); Total Protein 5.7 g/dL (6.2-8.2)
[2024-09-15] MEDS: PANTOPRAZOLE 40 MG TABLET PO SCH (09:10)
--- NOTE | 2024-09-15 12:31 | P.PN ---
Subjective Progress Note Date: 09/15/24 Principal diagnosis: Reason for follow-up is UTI Patient is a 74-year-old male with a past medical history significant for recurrent urinary tract infection managed with a suprapubic catheter recently did have a cystoscopy with concerning for bladder cancer the patient Garcia catheter was discontinued for voiding trial subsequent to the hospital with unable to urinate did have a positive UA urine grew staph epi prompting this consultation. On today's evaluation that is 09/15/2024,the patient denies any fever or any chills, patient is breathing comfortably on room air, the patient denies chest pain shortness of breath and no significant cough, patient denies abdominal pain, no nausea vomiting or diarrhea.. Patient white count 7.21, creatinine is 1.7 repeat urine is still significantly positive with a cultures pending Objective - Vital Signs Vital signs: Vital Signs Temp 97.6 F 09/15/24 07:07 Pulse 71 09/15/24 07:07 Resp 16 09/15/24 07:07 BP 115/76 09/15/24 07:07 Pulse Ox 94 L 09/15/24 07:07 FiO2 Intake & Output 09/14/24 09/15/24 09/15/24 18:59 06:59 18:59 Intake Total 1080 920 Output Total 1300 1100 Balance -220 -180 Intake: Oral 1080 920 Output: Urine 1300 1100 Other: Voiding Method Indwelling Catheter Indwelling Catheter - Exam GENERAL DESCRIPTION: An elderly male up in the chair in no distress RESPIRATORY SYSTEM: Unlabored breathing , decreased breath sounds at bases HEART: S1 S2 regular rate and rhythm , ABDOMEN: Soft , no tenderness EXTREMITIES: No edema feet - Labs CBC & Chem 7: 09/15/24 04:49 09/15/24 04:49 Labs: Abnormal Lab Results - Last 24 Hours (Table) 09/14/24 09/15/24 09/15/24 Range/Units 23:45 04:49 04:49 MCHC 31.7 L (32.0-37.0) g/dL MPV 9.4 L (9.5-12.2) FL Eosinophils # 0.43 H (0.04-0.35) X 10*3/uL Creatinine 1.7 H (0.6-1.5) mg/dL Est GFR (CKD-EPI) 42 L (>=60) Total Bilirubin 0.2 L (0.3-1.2) mg/dL C-Reactive Protein 0.90 H (0.00-0.80) mg/dL Total Protein 5.7 L (6.2-8.2) g/dL Albumin 3.6 L (3.8-4.9) g/dL Urine Protein Trace H (Negative) Urine Blood Moderate H (Negative) Urine Bilirubin 1+ H (Negative) Ur Leukocyte Esterase Large H (Negative) Urine RBC 83 H (0-5) /hpf Urine WBC >182 H (0-5) /hpf Urine WBC Clumps Moderate H (None) /hpf Amorphous Sediment Rare H (None) /hpf Urine Bacteria Occasional H (None) /hpf Hyaline Casts 6 H (0-2) /lpf Urine Mucus Few H (None) /hpf Assessment and Plan (1) UTI (urinary tract infection) Current Visit: Yes Status: Acute Code(s): N39.0 - URINARY TRACT INFECTION, SITE NOT SPECIFIED SNOMED Code(s): 32258174 Plan: 1patient was in the hospital with unable to urinate did have burning some suprapubic discomfort positive UA concerning for symptomatic/complicated UTI in this patient who has been recently diagnosed with a bladder cancer for the patient has been recommended cystectomy now with urine culture positive for staph epi oxacillin resistant and resistant to Bactrim DS 2-patient to continue with daptomycin advise at least a 3-day course for possible cystitis as we do not have any oral option Zyvox cannot be used because of drug interaction with his SSRI pathogen is resistant to Bactrim DS and with a creatinine clearance less than 60 nitrofurantoin may not be a good option, this was explained to the patient in layman term we will recommend a dose of daptomycin in the morning which will complete his 3 days and subsequently can be discharged Dictation was produced using G[employer] dictation software. please excuse any grammatical, word or spelling errors. Time with Patient: Less than 30
--- NOTE | 2024-09-16 04:56 | P.PN ---
Subjective This is a pleasant 74 years old male presents because of lower abdominal pain and urinary symptoms and inability to void of 1 to 2 days duration Patient was recently diagnosed with invasive urothelial carcinoma, patient's urologist is Dr. Kat. He denies chest pain or dyspnea. No headache dizziness weakness or numbness He had diarrhea 2 days ago but stopped He smokes less than a pack per day and he was counseled to quit he agrees but he does not want nicotine patch. He drinks occasionally socially and no illicit drugs He is hemodynamically stable and afebrile CBC and LFT were unremarkable Creatinine elevated at baseline of 1.5 and baseline 1.4-1.6. Rest of BMP is unremarkable Urine analysis is suspicious for UTI Lactic acid is negative at 0.8 CT of the abdomen and pelvis without contrast showing urinary bladder wall thickening suspicious for cystitis and tumor cannot be excluded Patient was started on ceftriaxone Several attempts to place Garcia catheter was felt by the staff. Urology team were consulted who were able to place 12 [place] catheter 09/13 Patient 2 feels improved No specific complaint, no dysuria or suprapubic pain or flank pain or tenderness. Garcia catheter in place and draining yellow urine No other new complaint. at bedside Vitals stable and creatinine stable at 1.6 Remains on ceftriaxone pending urine culture Patient evaluated by oncology team who recommended PET scan as an outpatient and close follow-up. Also urology on the case and patient told me he is going to follow-up with his urologist wants to be discharged Possible discharge in 24 to 48 hours once urine culture is finalized 09/14 Patient clinically doing well. His pain is controlled, no chest pain or dyspnea. No other new complaints Garcia catheter in place and draining yellow urine. No suprapubic pain or tenderness or dysuria. No fever or chills. Labs look stable from yesterday. Patient urine culture came back positive for Staph epidermidis. Sensitivities reviewed. Patient consulted with infectious disease team and patient was started on IV daptomycin If he continues to improve we will consider for possible discharge in 24 to 48 hours 09/15 Patient clinically is doing well with no more symptoms Garcia catheter in place draining yellow urine As per ID team based on urine culture at with Staph epidermidis growing. M ultiple resistance to antibiotics, there is no good oral options for treatment and asked to be continued on IV daptomycin Objective - Vital Signs Vital signs: Vital Signs Temp 97.5 F L 09/15/24 12:03 Pulse 60 09/15/24 12:03 Resp 16 09/15/24 12:03 BP 123/77 09/15/24 12:03 Pulse Ox 95 09/15/24 12:03 FiO2 Intake & Output 09/15/24 09/15/24 09/16/24 06:59 18:59 06:59 Intake Total 920 50 Output Total 1100 700 Balance -180 -700 50 Intake: Intake, IV Titration 50 Amount DAPTOmycin 400 mg In 50 Sodium Chloride 0.9% 50 ml @ 100 mls/hr IVPB Q24HR@1400 [facility] Rx#: [id number] Oral 920 Output: Urine 1100 700 Other: Voiding Method Indwelling Catheter Indwelling Catheter - Exam GENERAL: The patient is alert and oriented x3, not in any acute distress. Well developed, well nourished. HEENT: Pupils are round and equally reacting to light. EOMI. No scleral icterus. No conjunctival pallor. Normocephalic, atraumatic. No pharyngeal erythema. No thyromegaly. CARDIOVASCULAR: S1 and S2 present. No murmurs, rubs, or gallops. PULMONARY: Chest is clear to auscultation, no wheezing , no crackles. -ABDOMEN: Soft, nontender, nondistended, normoactive bowel sounds. No palpable organomegaly. Garcia catheter is in place MUSCULOSKELETAL: No joint swelling or deformity. EXTREMITIES: No cyanosis, clubbing, or pedal edema. NEUROLOGICAL: Gross neurological examination did not reveal any focal deficits. SKIN: No rashes. no petechiae. - Labs CBC & Chem 7: 09/15/24 04:49 09/15/24 04:49 Labs: Abnormal Lab Results - Last 24 Hours (Table) 09/14/24 09/15/24 09/15/24 Range/Units 23:45 04:49 04:49 MCHC 31.7 L (32.0-37.0) g/dL MPV 9.4 L (9.5-12.2) FL Eosinophils # 0.43 H (0.04-0.35) X 10*3/uL Creatinine 1.7 H (0.6-1.5) mg/dL Est GFR (CKD-EPI) 42 L (>=60) Total Bilirubin 0.2 L (0.3-1.2) mg/dL C-Reactive Protein 0.90 H (0.00-0.80) mg/dL Total Protein 5.7 L (6.2-8.2) g/dL Albumin 3.6 L (3.8-4.9) g/dL Urine Protein Trace H (Negative) Urine Blood Moderate H (Negative) Urine Bilirubin 1+ H (Negative) Ur Leukocyte Esterase Large H (Negative) Urine RBC 83 H (0-5) /hpf Urine WBC >182 H (0-5) /hpf Urine WBC Clumps Moderate H (None) /hpf Amorphous Sediment Rare H (None) /hpf Urine Bacteria Occasional H (None) /hpf Hyaline Casts 6 H (0-2) /lpf Urine Mucus Few H (None) /hpf Assessment and Plan Assessment: Acute urinary tract infection with urinary bladder wall thickening, need to rule out neoplasm. Urine culture is growing Staph epidermidis Acute urinary retention status post Garcia catheter Chronic kidney disease stage III Nicotine dependence Plan: Antibiotics was changed to IV daptomycin Status post Garcia catheter urine culture reviewed Urology team consult Follow-up with Dr. levy upon discharge Hematology/oncology team consult. Recommended PET scan as an outpatient patient and are aware and agreeable Continue with gentle hydration Patient counseled to quit smoking Labs and medication were reviewed.. Continue same treatment. Continue with symptomatic treatment. Resume home medication. Monitor labs and vitals. DVT and GI prophylaxis. Further recommendations as per clinical course of the patient DVT prophylaxis: Subcutaneous heparin GI Prophylaxis: Pepcid Prognosis is guarded
[2024-09-16 07:57] VITALS: BP 116/77; PULSE 61; RESP 18; TEMP 97.7
--- NOTE | 2024-09-16 11:58 | P.PN ---
Subjective Progress Note Date: 09/16/24 Principal diagnosis: Reason for follow-up is UTI Patient is a 74-year-old male with a past medical history significant for recurrent urinary tract infection managed with a suprapubic catheter recently did have a cystoscopy with concerning for bladder cancer the patient Garcia catheter was discontinued for voiding trial subsequent to the hospital with unable to urinate did have a positive UA urine grew staph epi prompting this consultation. On today's evaluation that is 09/16/2024,the patient remains to be afebrile, patient is on room air not requiring supplemental oxygen and denies any shortness of breath no chest pain or cough.Patient denies having any nausea or vomiting, no abdominal pain and no diarrhea has been reported, patient feeling better wants to go home. Patient did not have a lab draw today repeat culture so far negative Objective - Vital Signs Vital signs: Vital Signs Temp 97.7 F 09/16/24 07:23 Pulse 61 09/16/24 08:00 Resp 18 09/16/24 08:00 BP 116/77 09/16/24 07:23 Pulse Ox 93 L 09/16/24 07:23 FiO2 Intake & Output 09/15/24 09/16/24 09/16/24 18:59 06:59 18:59 Intake Total 590 Output Total 700 650 450 Balance -700 -60 -450 Intake: Intake, IV Titration 50 Amount DAPTOmycin 400 mg In 50 Sodium Chloride 0.9% 50 ml @ 100 mls/hr IVPB Q24HR@1400 [facility] Rx#: [id number] Oral 540 Output: Urine 700 650 450 Other: Voiding Method Indwelling Catheter Indwelling Catheter Indwelling Catheter - Exam GENERAL DESCRIPTION: An elderly male up in the chair in no distress RESPIRATORY SYSTEM: Unlabored breathing , decreased breath sounds at bases HEART: S1 S2 regular rate and rhythm , ABDOMEN: Soft , no tenderness EXTREMITIES: No edema feet - Labs CBC & Chem 7: 09/15/24 04:49 09/15/24 04:49 Assessment and Plan (1) UTI (urinary tract infection) Status: Acute Code(s): N39.0 - URINARY TRACT INFECTION, SITE NOT SPECIFIED SNOMED Code(s): 92081480 Plan: 1patient was in the hospital with unable to urinate did have burning some suprapubic discomfort positive UA concerning for symptomatic/complicated UTI in this patient who has been recently diagnosed with a bladder cancer for the patient has been recommended cystectomy now with urine culture positive for staph epi oxacillin resistant and resistant to Bactrim DS 2-patient has received 3 doses of daptomycin treatment of for cystitis no need for antibiotic on discharge if any recurrence of symptoms develops any fever to let me know right away question concern answered Dictation was produced using [employer] software. please excuse any grammatical, word or spelling errors.
--- NOTE | 2024-09-20 10:30 | P.DS ---
Providers Date of admission: 09/11/24 14:46 Expected date of discharge: 09/16/24 Attending physician: Manny Chaparro MD Consults: 09/11/24 14:33 Consult Physician Urgent Consulting Provider: Ed Beal Consult Reason/Comments: New prostate cancer diagnosis Do you want consulting provider notified?: Yes Consult Physician Urgent Consulting Provider: Romulo Brown Consult Reason/Comments: Urinary retention, previous suprapubic catheter Do you want consulting provider notified?: Yes 09/14/24 12:26 Consult Physician Urgent Consulting Provider: Chapis Vieyra Consult Reason/Comments: antibiotics for uti Do you want consulting provider notified?: Yes Primary care physician: Jose Luis Galindo Hospital Course: Final diagnosis Acute urinary tract infection with urinary bladder wall thickening, present on admission Acute urinary retention status post Garcia catheter History of suprapubic catheter Recently diagnosed muscle invasive urothelial carcinoma status post cystoscopy confirming this Chronic kidney disease stage III Nicotine dependence GI prophylaxis DVT prophylaxis Full code Discharge disposition Patient is being discharged in a stable condition with guarded prognosis to home. Patient will follow-up with Dr. Galindo in the outpatient setting upon discharge. Patient is to continue with current antibiotic recommendations and close outpatient follow-up with infectious disease as well as urology and oncology as scheduled. Total time taken is greater than 35 minutes. Hospital course This is a 74-year-old male who was recently admitted with inability to void requiring indwelling Garcia catheter with concerns of urinary tract infection. Patient does follow with urology outpatient and recently diagnosed with invasive urothelial carcinoma post cystoscopy with biopsies. Patient with chronic indwelling Garcia catheter being evaluated by infectious disease along with oncology and urology has been cleared for outpatient follow-up. Patient is extremely keen on going home and reports to feeling well and is at bedside ready to take him home. Please refer to other consultation notes for further HPI. Currently no reports of chest pain, shortness of breath, or palpitations. Patient is afebrile. No reports of nausea or vomiting and patient is tolerating diet. Patient will be discharged home today. Overall guarded prognosis and high risk for readmissions Physical exam: Gen: This is a 74-year-old male who is awake, alert and oriented x 3, well- developed, elderly appearing HEENT: Head is atraumatic, normocephalic. Pupils equal, round. Sclerae is anicteric. NECK: Supple. No JVD. No lymphadenopathy. No thyromegaly. LUNGS: Clear to auscultation. No wheezes or rhonchi. No intercostal retractions. HEART: Regular rate and rhythm. No murmur. ABDOMEN: Soft. Bowel sounds are present. No masses. No tenderness. EXTREMITIES: No pedal edema. No calf tenderness. NEUROLOGICAL: Patient is awake, alert and oriented x3. Cranial nerves 2 through 12 are grossly intact. Please refer to medication reconciliation sheet for a list of medications. The impression and plan of care has been dictated by Naomi Barr Nurse Pract itioner as directed. Dr. Leroy MD I have performed a history and examination and MDM of this patient, discussed the same with the dictator, and agree with the dictator's assessment and plan as written ,documented as a scribe. Based on total visit time, I have performed more than 50% of the visit. Patient Condition at Discharge: Fair Plan - Discharge Summary New Discharge Prescriptions: Continue traZODone HCL [Desyrel] 100 mg PO HS Tamsulosin [Flomax] 0.4 mg PO BID Meloxicam [Mobic] 7.5 mg PO DAILY FLUoxetine HCL [PROzac] 40 mg PO DAILY ALPRAZolam [Xanax] 0.5 mg PO Q8H PRN PRN Reason: Anxiety FLUoxetine HCL [PROzac] 20 mg PO HS buPROPion [Wellbutrin] 75 mg PO BID L.acidkatie,Slicki, B.lactis [Probiotic] 1 cap PO DAILY Lactulose [Cephulac] 20 gm PO TID PRN #360 ml PRN Reason: Constipation polyethylene glycoL 3350 [Miralax] 17 gm PO DAILY #30 packet Sennosides [Senokot] 8.6 mg PO BID #60 tab Ketorolac [Toradol] 10 mg PO Q6HR PRN PRN Reason: Pain HYDROcodone/APAP 5-325MG [[place] 5-325] 1 tab PO Q6H PRN PRN Reason: Pain Discontinued Lovastatin [Mevacor] 40 mg PO HS Discharge Medication List FLUoxetine HCL [PROzac] 20 mg PO HS 08/05/24 [History] FLUoxetine HCL [PROzac] 40 mg PO DAILY 08/05/24 [History] L.acidoph,Paracasei, B.lactis [Probiotic] 1 cap PO DAILY 08/05/24 [History] Meloxicam [Mobic] 7.5 mg PO DAILY 08/05/24 [History] Tamsulosin [Flomax] 0.4 mg PO BID 08/05/24 [History] buPROPion [Wellbutrin] 75 mg PO BID 08/05/24 [History] traZODone HCL [Desyrel] 100 mg PO HS 08/05/24 [History] Lactulose [Cephulac] 20 gm PO TID PRN #360 ml 08/11/24 [Rx] Sennosides [Senokot] 8.6 mg PO BID #60 tab 08/11/24 [Rx] polyethylene glycoL 3350 [Miralax] 17 gm PO DAILY #30 packet 08/11/24 [Rx] ALPRAZolam [Xanax] 0.5 mg PO Q8H PRN 09/11/24 [History] HYDROcodone/APAP 5-325MG [[place] 5-325] 1 tab PO Q6H PRN 09/11/24 [History] Ketorolac [Toradol] 10 mg PO Q6HR PRN 09/11/24 [History] Follow up Appointment(s)/Referral(s): Ed Beal [STAFF PHYSICIAN] - 09/24/24 1:00 pm (This appt valid if pt is able to get PET scan before appt) Jose Luis Galindo MD [Primary Care Provider] - 09/20/24 11:20 am Ambulatory/Diagnostic Orders: Basic Metabolic Panel [LAB.AMB] Time Frame: 3 Days, Location: None Selected Patient Instructions/Handouts: Urinary Tract Infection in Men (GEN) Activity/Diet/Wound Care/Special Instructions: Activity as limited until follow-up Follow-up with primary care provider on discharge Follow-up with oncology outpatient Discharge Disposition: HOME WITH HOME HEALTH SERVICES
== END 2024-09-16 11:46 | disposition home health service (06) | DRG 690 ==
LOC: EC 10:25 → 5NMEDONC 14:46
PROVIDERS: ADMIT Internal Medicine; ATTEND Internal Medicine
DX: N30.90 Cystitis, unspecified without hematuria (principal); N31.2 Flaccid neuropathic bladder, not elsewhere classified; C67.9 Malignant neoplasm of bladder, unspecified; C61 Malignant neoplasm of prostate; F31.9 Bipolar disorder, unspecified; N18.30 Chronic kidney disease, stage 3 unspecified; Z16.20 Resistance to unspecified antibiotic; F17.200 Nicotine dependence, unspecified, uncomplicated; R33.8 Other retention of urine; Z71.6 Tobacco abuse counseling; Z71.3 Dietary counseling and surveillance; Z79.1 Long term (current) use of non-steroidal anti-inflammatories (NSAID); Z79.899 Other long term (current) drug therapy; Z87.440 Personal history of urinary (tract) infections; Z90.79 Acquired absence of other genital organ(s)
CPT/HCPCS: 36415; 51798; 74176; 80048; 80053; 81001; 83605; 85025; 86140; 87077; 87086; 87186; 96374; 96375; 96376; 99285

== ENCOUNTER → 2024-09-17 | Outpatient (CLI) | payer MEDICARE ==
--- NOTE | 2024-09-18 12:18 | PE ---
EXAMINATION TYPE: PET CT fusion skull to thigh DATE OF EXAM: 09/17/2024 COMPARISON: EXAMINATION TYPE: PET CT fusion skull to thigh DATE OF EXAM: 09/17/2024 COMPARISON: CT abdomen and pelvis September 11, 2024 and August 05, 2024 HISTORY: Ureter cancer TECHNIQUE: Following the intravenous administration of 10.69 mCi of F-18 FDG, whole body images are performed from the skull base to the midthigh. Images are re viewed on the computer in the coronal, axial, and sagittal planes. Reconstructed rotating images are created on independent workstation and reviewed on the computer. A localization and attenuation co rrection CT is performed in conjunction with the PET scan. Blood glucose level equals 93. SCAN: Initial Scan FINDINGS: SKULL BASE AND NECK: No areas of suspicious abnormal hypermetabolic uptake. CHEST, MEDIASTINUM, AND HILAR REGION: No areas of suspicious abnormal hypermetabolic uptake. ABDOMEN AND PELVIS: Expected uptake along the course of the ureters and bladder. Increased hypermetab olic uptake corresponds to right sided bladder mass or neoplasm axial image 240 measuring near 4.5 x 2.5 cm. Garcia catheter is redemonstrated. No additional areas of abnormal hypermetabolic uptake clearly seen. OSSEOUS STRUCTURES: Abnormal hypermetabolic uptake right ischial tuberosity , max SUV is 16.55. No so ft tissue mass or cortical destruction seen. Subtle 5 mm lucent lesion on recent CT is noted at this level. No definitive areas of abnormal suspicious hypermetabolic uptake. OTHER CT: Bilateral subareolar gynecomastia is seen. There is 2.3 cm simple parenchymal cyst anteriorly in the liver. Linear density posterior to the right aspect of the bladder of uncertain etiology. Slight scol iotic curvature in the lumbar spine. IMPRESSION: Primary bladder mass or neoplasm identified. Abnormal uptake in pelvis at the right ischi al tuberosity could reflect osseous metastatic focus. No additional evidence for metastatic disease. HISTORY: TECHNIQUE: Following the intravenous administration of mCi of F-18 FDG, whole body images are perfor med from the skull base to the midthigh. Images are reviewed on the computer in the coronal, axial, and sagittal planes. Reconstructed rotating images are created on independent workstation and review ed on the computer. A localization and attenuation correction CT is performed in conjunction with t he PET scan. SCAN: FINDINGS: SKULL BASE AND NECK: CHEST, MEDIASTINUM, AND HILAR REGION: ABDOMEN AND PELVIS: OSSEOUS STRUCTURES: OTHER CT: IMPRESSION: [facility], , 09/18/2024 12:15 PM
== END | disposition home or self-care (01) ==
LOC: RADPETMAIN 15:30
PROVIDERS: ATTEND Internal Medicine Hematology & Oncology
DX: C68.0 Malignant neoplasm of urethra (principal); N32.9 Bladder disorder, unspecified; R93.7 Abnormal findings on diagnostic imaging of other parts of musculoskeletal system
CPT/HCPCS: 78815; A9552

== ENCOUNTER → 2024-12-03 | Outpatient (CLI) | payer MEDICARE ==
--- NOTE | 2024-12-06 07:36 | PE ---
EXAMINATION TYPE: PET CT fusion skull to thigh DATE OF EXAM: 12/03/2024 COMPARISON: Prior PET/CT September 17, 2024 HISTORY: Bladder cancer progress study originally diagnosed August 30, 2024 completed cryotherapy Apr il 8. TECHNIQUE: Following the intravenous administration of 11.0 mCi of F-18 FDG, whole body images are p erformed from the skull base to the midthigh. Images are reviewed on the computer in the coronal, ax ial, and sagittal planes. Reconstructed rotating images are created on independent workstation and r eviewed on the computer. A localization and attenuation correction CT is performed in conjunction w ith the PET scan. Blood glucose level equals 92. SCAN: Subsequent Scan FINDINGS: SKULL BASE AND NECK: Symmetric masseter muscle uptake is physiologic. No new areas of suspicious hyp ermetabolic uptake. CHEST, MEDIASTINUM, AND HILAR REGION: Myocardial uptake including the right ventricular wall uptake. No new areas of suspicious abnormal hypermetabolic uptake. ABDOMEN AND PELVIS: Normal excretion. Interval cystectomy with right-sided ileal conduit and ostomy i dentified. No new areas of suspicious abnormal hypermetabolic uptake. OSSEOUS STRUCTURES: Improvement in abnormal hypermetabolic uptake in the right initial tuberosity on current study. Lucent destruction is now present at this level axial image 217. Some abnormal hyperme tabolic uptake along the inferior periphery axial image 230, max SUV is 7.84 versus 16.55 on prior. T here is a subcentimeter soft tissue focus along the posterior aspect axial image 218 with hypermetab olic uptake, max SUV is 8.37. OTHER CT: Moderate underlying emphysematous change. Dependent opacity or atelectasis. Prostate gland now surgically absent. Bilateral subareolar gynecomastia redemonstrated. Stable 2.3 cm thin-walled cy st in the anterior liver axial image 165. Scoliotic curvature of the lumbar spine is redemonstrated. IMPRESSION: Interval surgery. Persistent right iliac bone metastatic lesion. No new metastatic lesion s identified. [facility], , 12/06/2024 7:34 AM
== END | disposition home or self-care (01) ==
LOC: RADPETMAIN 08:51
PROVIDERS: ATTEND Radiology Diagnostic Radiology
DX: C66.9 Malignant neoplasm of unspecified ureter (principal); C79.51 Secondary malignant neoplasm of bone
CPT/HCPCS: 78815; A9552

== ENCOUNTER → 2025-02-03 | Outpatient (CLI) | payer MEDICARE ==
--- NOTE | 2025-02-04 18:19 | PE ---
EXAMINATION TYPE: PET CT fusion skull to thigh DATE OF EXAM: 02/03/2025 CLINICAL INDICATION:Male, 74 years old with history of bladder ca; TECHNIQUE: Following the intravenous administration of 10.8 mCi of F-18 FDG, whole body images are performed from the skull base to the Mid thigh. Images are reviewed on the computer in the coronal, axial, and sagittal planes. Reconstructed rotating images are created on independent workstation and reviewed on the computer. A non-contrast CT is performed in conjunction with the PET scan. Glucose level 85 mg/dL CT DLP: 1646 mGycm, Automated exposure control for dose reduction was used. COMPARISON: CT 09/11/2024, PET/CT 12/03/2024, MRI: 01/19/2025 FINDINGS: Mediastinal SUV mean is 2.2. Hepatic parenchyma SUV mean is 2.8. SKULL BASE AND NECK: No suspicious radiotracer activity. CHEST, MEDIASTINUM, AND HILAR REGION: Focal uptake near the right ventricle wall/pulmonary trunk max SUV 12.3 previously 6.9. ABDOMEN AND PELVIS: Suspicious uptake identified; examples include: * Left pelvic sidewall lymph node with increased uptake max SUV 18.4 percent 5.2 Measuring 10 mm * Right pelvic sidewall lymph node with increased uptake max SUV 4.1 previously 2.8 measuring 8 mm * Urinary bladder is surgically absent. Ileal loop conduit present. MUSCULOSKELETAL STRUCTURES: Extensive uptake now seen within the and around the right iliac bone lesion which extends into the sa [place] on today's exam. Max SUV 27.3 previously 7.8 there is much larger of uptake on today's exam invo lving the sacrum measuring up to 7.3 cm x 4.[address]: Moderate underlying emphysematous change. Right lower quadrant ostomy changes. Dependent opacity or a telectasis. Prostate gland now surgically absent. Bilateral subareolar gynecomastia redemonstrated. S table 2.3 cm thin-walled cyst in the anterior liver axial image 165. Scoliotic curvature of the lumba r spine is redemonstrated. IMPRESSION: 1. Progression of disease with increased metabolic uptake around the right sacroiliac joint and now within the right sacrum. Additionally there is bilateral pelvic sidewall lymph nodes with increased u ptake concerning for malignancy. 2. Focal uptake within the right ventricle wall possibly near the pulmonary trunk. Further evaluatio n should be considered to exclude heart metastatic disease. [facility], , 02/04/2025 6:17 PM
== END | disposition home or self-care (01) ==
LOC: RADPETMAIN 06:23
PROVIDERS: ATTEND Internal Medicine
DX: C67.8 Malignant neoplasm of overlapping sites of bladder (principal); C68.0 Malignant neoplasm of urethra; R93.7 Abnormal findings on diagnostic imaging of other parts of musculoskeletal system; R93.89 Abnormal findings on diagnostic imaging of other specified body structures
CPT/HCPCS: 78815; A9552